=== PATIENT | female | born 2000 | race Two or more races ===

== ENCOUNTER 2020-10-17 12:42 | Outpatient (REF) | payer OTHER, SELFPAY | END 2020-10-17 12:43 | disposition home or self-care (01) | LOC: HO.LAB 12:42 | PROVIDERS: Visit Provider Internal Medicine | DX: Z20.828 Contact with and (suspected) exposure to other viral communicable diseases (principal) | CPT/HCPCS: C9803; U0003 ==

== ENCOUNTER 2020-12-05 17:57 | Emergency (ER) | payer OTHER, SELFPAY | END 2020-12-05 21:48 | disposition left against medical advice (07) | PROVIDERS: Emergency Provider Internal Medicine | DX: L23.9 Allergic contact dermatitis, unspecified cause (principal) | CPT/HCPCS: 99281 ==

== ENCOUNTER 2020-12-06 11:31 | Outpatient (REF) | payer OTHER, SELFPAY ==
[2020-12-06 13:51] LABS: Hematocrit 36.3 % (37-47); Hemoglobin 11.8 g/dl (12.0-16.0); Mean Corpuscular HGB Conc 32.5 g/dl (31.0-35.0); Mean Corpuscular Hemoglobin 27.8 pg (27.0-33.0); Mean Corpuscular Volume 85.4 fL (80-98); Mean Platelet Volume 9.9 fL (9.4-12.3); Platelet Count 315 X10*3/uL (160-400); Red Blood Count 4.25 X10*6/uL (4.20-5.50); Red Cell Distribution Width 12.8 % (11.0-16.0); White Blood Count 8.4 X10*3/uL (4.8-10.8)
== END 2020-12-06 11:32 | disposition home or self-care (01) ==
LOC: HO.WFDLDS 11:31
PROVIDERS: Visit Provider Hospitalist
DX: R10.9 Unspecified abdominal pain (principal); R35.0 Frequency of micturition
CPT/HCPCS: 36415; 85027

== ENCOUNTER 2021-08-06 08:54 | Outpatient (REF) | payer OTHER, SELFPAY ==
[2021-08-06 16:50] LABS: CT PCR NOT DETECTED (Not Detect.); NG PCR NOT DETECTED (Not Detect.)
[2021-08-07 09:13] LABS: BV Int Neg Control Negative (Negative); BV Int Pos Control Positive (Positive)
== END 2021-08-06 08:55 | disposition home or self-care (01) ==
LOC: HO.LAB 08:54
PROVIDERS: PCP Hospitalist; Visit Provider Advanced Practice Midwife
DX: Z01.411 Encounter for gynecological examination (general) (routine) with abnormal findings (principal); Z11.3 Encounter for screening for infections with a predominantly sexual mode of transmission; R10.2 Pelvic and perineal pain; R30.0 Dysuria
CPT/HCPCS: 87086; 87480; 87491; 87510; 87591; 87660; 88142

== ENCOUNTER 2021-09-20 08:41 | Outpatient (REF) | payer OTHER, SELFPAY | END 2021-09-20 08:42 | disposition home or self-care (01) | LOC: HO.LAB 08:41 | PROVIDERS: Visit Provider Hospitalist | DX: R30.0 Dysuria (principal) | CPT/HCPCS: 87086 ==

== ENCOUNTER 2021-09-20 09:01 | Outpatient (REF) | payer OTHER, SELFPAY ==
[2021-09-20 11:03] LABS: Hematocrit 40.9 % (37-47); Hemoglobin 13.4 g/dl (12.0-16.0); Mean Corpuscular HGB Conc 32.8 g/dl (31.0-35.0); Mean Corpuscular Hemoglobin 28.6 pg (27.0-33.0); Mean Corpuscular Volume 87.4 fL (80-98); Mean Platelet Volume 9.7 fL (9.4-12.3); Platelet Count 282 X10*3/uL (160-400); Red Blood Count 4.68 X10*6/uL (4.20-5.50); Red Cell Distribution Width 12.8 % (11.0-16.0); White Blood Count 7.9 X10*3/uL (4.8-10.8)
[2021-09-20 12:01] LABS: Anion Gap 12 (12-20); Blood Urea Nitrogen 9 mg/dL (9-16); Calcium 9.7 mg/dL (8.4-10.2); Carbon Dioxide 26 mmol/L (22-29); Chloride 104 mmol/L (96-108); Cholesterol 161 mg/dL; Estimated Glomerular Filt Rate > 60; Glucose Fasting 93 mg/dL (60-99); HDL Cholesterol 59 mg/dL; LDL Cholesterol Calculated 87 mg/dl; Sodium 138 mmol/L (135-145); Triglycerides 77 mg/dL
[2021-09-20 12:03] LABS: TSH reflex Free T4 1.24 uIU/mL (0.32-4.0)
== END 2021-09-20 09:02 | disposition home or self-care (01) ==
LOC: HO.WFDLDS 09:01
PROVIDERS: Visit Provider Hospitalist
DX: Z00.01 Encounter for general adult medical examination with abnormal findings (principal); Z86.2 Personal history of diseases of the blood and blood-forming organs and certain disorders involving the immune mechanism
CPT/HCPCS: 36415; 80048; 80061; 84443; 85027

== ENCOUNTER 2022-09-23 09:57 | Outpatient (REF) | payer OTHER, SELFPAY ==
[2022-09-23 11:53] LABS: Hematocrit 37.8 % (37.0-47.0); Hemoglobin 12.6 g/dl (12.0-16.0); Mean Corpuscular HGB Conc 33.3 g/dl (31.0-35.0); Mean Corpuscular Hemoglobin 28.3 pg (27.0-33.0); Mean Corpuscular Volume 84.8 fL (80.0-98.0); Mean Platelet Volume 9.9 fL (9.4-12.3); Platelet Count 294 X10*3/uL (160-400); Red Blood Count 4.46 X10*6/uL (4.20-5.50); Red Cell Distribution Width 11.9 % (11.0-16.0); White Blood Count 6.8 X10*3/uL (4.8-10.8)
[2022-09-23 12:09] LABS: Alanine Aminotransferase 14 U/L (0-31); Albumin Level 4.6 g/dL (3.5-5.0); Alkaline Phosphatase 65 U/L (39-117); Anion Gap 12 (12-20); Aspartate Amino Transferase 17 U/L (5-31); Bilirubin Total 0.5 mg/dL (0.0-1.0); Blood Urea Nitrogen 11 mg/dL (9-16); Calcium 9.7 mg/dL (8.4-10.2); Carbon Dioxide 27 mmol/L (22-29); Chloride 104 mmol/L (96-108); Cholesterol 173 mg/dL; Estimated Glomerular Filt Rate > 60; Glucose Fasting 88 mg/dL (60-99); HDL Cholesterol 57 mg/dL; LDL Cholesterol Calculated 104 mg/dl; Potassium 4.3 mmol/L (3.3-5.1); Sodium 139 mmol/L (135-145); Triglycerides 63 mg/dL
[2022-09-23 12:30] LABS: TSH reflex Free T4 0.94 uIU/mL (0.32-4.0)
[2022-09-26 16:01] LABS: Vitamin D 25-OH, D2 <4 ng/mL; Vitamin D 25-OH, D3 14 ng/mL; Vitamin D 25-OH, Total 14 ng/mL (30-100)
== END 2022-09-23 09:58 | disposition home or self-care (01) ==
LOC: HO.WFDLDS 09:57
PROVIDERS: Visit Provider Hospitalist
DX: Z00.00 Encounter for general adult medical examination without abnormal findings (principal); L40.3 Pustulosis palmaris et plantaris
CPT/HCPCS: 36415; 80053; 80061; 82306; 84443; 85027

== ENCOUNTER 2023-03-17 10:03 | Outpatient (REF) | payer OTHER, SELFPAY | END 2023-03-17 10:04 | disposition home or self-care (01) | LOC: HO.LNP 10:03 | PROVIDERS: PCP Hospitalist; Visit Provider Advanced Practice Midwife | DX: R39.15 Urgency of urination (principal) | CPT/HCPCS: 81003 ==

== ENCOUNTER 2023-03-17 10:44 | Outpatient (REF) | payer OTHER, SELFPAY ==
[2023-03-17 12:52] LABS: Syphilis Screen Nonreactive (Nonreactive)
[2023-03-17 12:54] LABS: HBc Num1 0.06 S/CO (0.00-0.79); HIV Num 1 1.41 S/CO (0.00-0.99); Hepatitis B Core Antibody Nonreactive (Nonreactive); ~HepC Num1 0.08 S/CO (0.00-0.79); ~Hepatitis C Antibody Nonreactive (Nonreactive)
[2023-03-17 14:30] LABS: CT PCR NOT DETECTED (Not Detect.); NG PCR NOT DETECTED (Not Detect.)
[2023-03-17 14:41] LABS: HIV AB/AG Nonreactive (Nonreactive); HIV Num 2 0.07 S/CO; HIV Num 3 0.07 S/CO
== END 2023-03-17 10:45 | disposition home or self-care (01) ==
LOC: HO.LAB 10:44
PROVIDERS: Visit Provider Advanced Practice Midwife
DX: Z11.4 Encounter for screening for human immunodeficiency virus [HIV] (principal); Z20.2 Contact with and (suspected) exposure to infections with a predominantly sexual mode of transmission
CPT/HCPCS: 0353U; 86704; 86780; 86803; 87389

== ENCOUNTER 2023-04-18 10:51 | Outpatient (REF) | payer OTHER, SELFPAY ==
[2023-04-18 12:22] LABS: Alanine Aminotransferase 13 U/L (0-31); Albumin Level 4.2 g/dL (3.5-5.0); Alkaline Phosphatase 63 U/L (39-117); Aspartate Amino Transferase 16 U/L (5-31); Bilirubin Direct 0.1 mg/dL (0.0-0.5); Bilirubin Total 0.4 mg/dL (0.0-1.0); Total Protein 6.6 g/dL (6.5-8.0)
== END 2023-04-18 10:52 | disposition home or self-care (01) ==
LOC: HO.LAB 10:51
PROVIDERS: PCP Hospitalist; Visit Provider Physician Assistant Medical
DX: B35.1 Tinea unguium (principal); B35.3 Tinea pedis; D23.61 Other benign neoplasm of skin of right upper limb, including shoulder
CPT/HCPCS: 36415; 80076

== ENCOUNTER 2023-09-22 11:13 | Outpatient (AMB) | payer OTHER, SELFPAY ==
[2023-09-22 11:26] VITALS: BP 112/78; PULSE 73; O2SAT 98; BMI 26.9
--- NOTE | 2023-09-22 11:26 | MHC.PC.OV ---
Vital Signs 09/22/23 11:26 Height 5 ft 4 in Weight 71.214 kg BMI 26.9 BP 112/78 Blood Pressure Location Lt brachial Position Sitting Pulse 73 Pulse Source Pulse Oximeter Pulse Oximetry (%) 98 Oxygen Delivery Method Room Air Intake Visit Reasons: est care Intake Note: Patient here to establish care Supply Chain Associate Required: No Accompanied by: Self / Same As Patient Allergies peach [PEACH] Allergy (Mild, Verified 09/22/23 11:38) HIVES berries Allergy (Severe, Uncoded 09/23/22 09:24) hives Nectarines Allergy (Unknown, Uncoded 09/23/22 09:24) Throat closes Peaches Allergy (Unknown, Uncoded 09/23/22 09:24) Throat closes Medication List - Last Reconciled 09/22/23 by JAX Delgado No Known Home Meds Tobacco use date assessed: 09/22/23 Dental Screening Dental Screen Date: 09/22/23 Did you have a dental visit in the last 12 months?: No Did you have a dental problem in the last 6 months where you did not have access to dental care?: No Was dental information given to patient?: Patient has dentist HPI HPI Comments History of Present Illness Details 23-year-old female past medical history significant for iron deficiency anemia, vitamin-D deficiency. Previous patient of Apryl Acharya last seen last year. Patient presents today for physical exam. Patient reports has upcoming appointment with OBGYN next month. Eye exam recommended. Patient reports overall feeling however she is complaining of ongoing chronic neck pain and upper back pain related to her large breast. Patient reports she wears size G bras. Patient reports she has strap grooving from her bras, denies rashes. Patient recommended to try conservative treatment with [id number]-[id number] ibuprofen or Tylenol for pain and will refer to physical therapy for neck pain. PFSH Surgical History Hx of wisdom tooth extraction Family History Father Hypertension Social History Housing: House Alcohol intake: current Alcohol intake frequency: holidays/special occasions only Alcohol type: other Patient Tobacco Use Status: Never used Tobacco e-Cigarette/Vaping Use: Never Used Second Hand Smoke Exposure: No service: No Current occupational status: employed Current occupational exposures/hazards: No Sexual orientation: Bisexual Gender identity: Female Cognitive needs: No Hearing needs: No Vision needs: No Female Reproductive History Menstrual Age of Menarche: 11 Questionnaire PHQ-9 Over the last 2 weeks, how often have you been bothered by any of the following problems? 1. Little interest or pleasure in doing things: not at all 2. Feeling down, depressed, or hopeless: not at all 3. Trouble falling or staying asleep, or sleeping too much: not at all 4. Feeling tired or having little energy: not at all 5. Poor appetite or overeating: not at all 6. Feeling bad about yourself - or that you are a failure or have let yourself or your family down: not at all 7. Trouble concentrating on things, such as reading the newspaper or watching television: not at all 8. Moving or speaking so slowly that other people could have noticed. Or the opposite - being so fidgety or restless that you have been moving around a lot more than usual: not at all 9. Thoughts that you would be better off or of hurting yourself in some way: not at all Total score: 0 Depression Screening Interpretation: Negative Depression Screening Done: Yes 69968 - PHQ-9 Billing: Yes Source: Developed by Drs. Landry Desai, Yoli Caceres, Killian Alfaro and colleagues, with an educational shayy from Currently. Thrive Questionnaire Date Thrive assessed: 09/22/23 I am a: Patient What is your living situation today?: I have a steady place to live Within the past 12 months, did the food you bought not last and you didn't have the money to get more?: Never true Within the past 12 months, did you worry whether your food would run out before you got money to buy more?: Never true Do you have trouble paying for medicines?: No Do you have trouble getting transportation to medical appointments?: No Do you have trouble paying your heating and electricity bill?: No Do you have trouble taking care of your child, family member or friend?: No Do you have trouble with day-to-day activities such as bathing, preparing meals, shopping, managing finances, etc.?: No Are you currently unemployed and looking for a job?: No Are you interested in more education?: No Please select the resources that you would like help with: None Currently or been in a relationship where the following occur: no concerns reported AUDIT C Alcohol Use Questionnaire (AUDIT-C) 1. How often do you have a drink containing alcohol?: Monthly or less 2. How many drinks containing alcohol do you have on a typical day when you are drinking?: 1 or 2 3. How often do you have six or more drinks on one occasion?: Never Total Score: 1 RUFINA-7 AMB Questionnaire RUFINA-7 Date RUFINA - 7 assessed: 09/22/23 Feeling nervous, anxious, or on edge: 1 = Several days Not being able to stop or control worryin = Not at all Worrying too much about different things: 0 = Not at all Trouble relaxin = Not at all Being so restless that it is hard to sit still: 0 = Not at all Becoming easily annoyed or irritable: 0 = Not at all Feeling afraid as if something awful might happen: 0 = Not at all Total RUFINA-7 score (0-4 normal; 5-9 mild; 10-14 moderate; 15-21 severe): 1 Source: Developed by Drs. Landry Desai, Yoli Caceres, Killian Alfaro and colleagues, with an educational shayy from Currently. RUFINA-7 Assessment Billing RUFINA-7 Assessment Tool: RUFINA-7 Assessment 32541 Physical exam (Primary Care) Vital Signs: Last Vital Signs Pulse 73 09/22/23 11:26 BP 112/78 09/22/23 11:26 Pulse Ox 98 09/22/23 11:26 Oxygen Delivery Method Room Air 09/22/23 11:26 BMI result Body Mass Index 26.9 Tobacco/Smoking Status: Tobacco use Status Tobacco use date assessed 09/22/23 09/22/23 11:31 Patient Tobacco Use Status Never used Tobacco 09/22/23 11:31 e-Cigarette/Vaping Use Never Used 09/22/23 11:31 PHQ-9: PHQ-9 Score PHQ-9: Total score 0 09/22/23 12:01 Depression Screening Interpretation: Negative Thrive Assessment: Date of Thrive Assessment Date Thrive assessed 09/22/23 09/22/23 11:31 Currently or been in a relationship where the following occur: no concerns reported Office Procedures Flu Questionnaire Does the patient have a severe egg allergy?: No Immunizations flu vacc [id number] 6mos up(PF) 60 mcg(15 mcgx4)/0.5 mL IM syringe Performing Provider: JAX Delgado [facility] Documented (not given) by: TANI Michelle on 09/22/23 12:05 Reason Not Given: Patient Refused Assessment and Plan Assessment & Plan (1) Vitamin D deficiency: Code(s): E55.9 - Vitamin D deficiency, unspecified Plan: Vitamin-D level ordered (2) Hx of iron deficiency anemia: Code(s): Z86.2 - Personal history of diseases of the blood and blood-forming organs and certain disorders involving the immune mechanism Plan: CBC ordered. (3) Large breasts: Code(s): N62 - Hypertrophy of breast Plan: Patient thinking about breast reduction surgery due to ongoing chronic neck pain and upper back pain related to large breast size. Patient advised to wear wide strep bras, use [id number] NSAIDs as needed for pain refer to physical therapy. Follow-up in 3 months. (4) Physical exam, annual: Code(s): Z00.00 - Encounter for general adult medical examination without abnormal findings Plan: Follow-up in 1 year. Plan Follow-up in 3 months Orders: Orders Complete Blood Count Auto Diff Today Z13.0 - Encounter for screening for diseases of the blood and blood-forming organs and certain disorders involving the immune mechanism TSH reflex Free T4 Today Z13.29 - Encounter for screening for other suspected endocrine disorder Comprehensive Met. Panel Today Z13.1 - Encounter for screening for diabetes mellitus Vitamin D 25-OH Total Today Z13.21 - Encounter for screening for nutritional disorder PT Evaluation and Treatment Today M54.2 - Cervicalgia Influenza [id number] Immunization Today Z23 - Encounter for immunization Coding Level of Care Code Est Pt Prev Care 18-39y([id number]) Diagnoses Vitamin D deficiency E55.9 Hx of iron deficiency anemia Z86.2 Large breasts N62 Physical exam, annual Z00.00 Additional Codes RUFINA-7 Assessment Billing - RUFINA-7 Assessment Tool: RUFINA-7 Assessment [id number] ([id number])
== END 2023-09-22 11:56 | disposition home or self-care (01) ==
PROVIDERS: PCP Hospitalist; Visit Provider Nurse Practitioner Family
DX: Z00.00 Encounter for general adult medical examination without abnormal findings (principal); E55.9 Vitamin D deficiency, unspecified; Z86.2 Personal history of diseases of the blood and blood-forming organs and certain disorders involving the immune mechanism; N62 Hypertrophy of breast
CPT/HCPCS: 99395

== ENCOUNTER 2023-11-28 11:24 | Outpatient (REF) | payer OTHER, SELFPAY | END 2023-11-28 11:25 | disposition home or self-care (01) | LOC: HO.LNP 11:24 | PROVIDERS: PCP Hospitalist; Visit Provider Advanced Practice Midwife | DX: R10.2 Pelvic and perineal pain (principal); R30.0 Dysuria; K59.00 Constipation, unspecified | CPT/HCPCS: 0353U; 87086; 87480; 87510; 87660 ==

== ENCOUNTER 2023-11-28 11:24 | Outpatient (AMB) | payer OTHER, SELFPAY ==
[2023-11-28 11:42] VITALS: BP 100/60; BMI 26.6
--- NOTE | 2023-11-28 11:42 | MHC.OFFVIS ---
Intake Vital Signs 11/28/23 11:42 Height 5 ft 4 in Weight 155 lb BMI 26.6 BP 100/60 Position Sitting Intake Visit Reasons: pelvic pain Intake Note: Pt is here for c/o pelvic pain, vaginal discharge with slight odor, frequency, and urgency. Has had symptoms for several weeks. LMP 11/11/23 x3 days. Menses are usually regular Front Desk Required: No Allergies peach [PEACH] Allergy (Mild, Verified 09/22/23 11:38) HIVES berries Allergy (Severe, Uncoded 09/23/22 09:24) hives Nectarines Allergy (Unknown, Uncoded 09/23/22 09:24) Throat closes Peaches Allergy (Unknown, Uncoded 09/23/22 09:24) Throat closes Medication List - Last Reconciled 11/28/23 by Gemma Smith No Known Home Meds Is last menstrual period known: Yes Last menstrual period: 11/11/23 Post menopausal: No Patient : No HPI pelvic pain HPI Details Pt is here for c/o pelvic pain, vaginal discharge with slight odor, frequency, and urgency. Has had symptoms for 30. LMP 11/11/23 x3 days. Admits to long history of constipation, feels pretty backed up at this point. She has a limited caffeine sodas carbonated beverages artificial sweeteners from her diet. [facility] Hx of wisdom tooth extraction Family History Father Hypertension Social History Housing: House Alcohol intake: current Alcohol intake frequency: holidays/special occasions only Alcohol type: other Patient Tobacco Use Status: Never used Tobacco e-Cigarette/Vaping Use: Never Used Second Hand Smoke Exposure: No service: No Current occupational status: employed Current occupational exposures/hazards: No Sexual orientation: Bisexual Gender identity: Female Cognitive needs: No Hearing needs: No Vision needs: No Female Reproductive History Menstrual Age of Menarche: 11 Duration of menses: 3-5 days Date of last menstrual period: 11/11/23 control method: none Total pregnancies: 0 History of abnormal pap smear: No History of STI: No Review of Systems Const All systems reviewed & are unremarkable except as noted in HPI and below Physical Exam Vital Signs: Last Vital Signs BP 100/60 11/28/23 11:42 BMI result Body Mass Index 26.6 Const General: cooperative, healthy appearing and no acute distress Orientation/consciousness: patient oriented x3 GI Inspection: Yes normal to inspection Palpation (GI): Soft to palpation and Other GI palpation findings present (Nontender) Rectal Exam - Female: visual inspection normal General: Yes bladder normal to palpation External Female Exam: normal appearance of the urethra Speculum Exam - Vagina: normal appearance of the vagina, normal palpation and normal vaginal discharge Speculum Exam - Cervix: normal appearance of the cervix and normal palpation Bimanual exam- vagina & uterus: normal bimanual exam, normal palpation, uterine size normal, bladder normal to palpation, normal palpation, uterine shape normal and non-tender Bimanual Exam- Adnexa, other: normal adnexae (Left, right side full consistent with constipated stool) Neuro General: patient oriented x3 Results AMB Test Urine AMB Test Urine Negative Last Edit by Gemma Smith on 11/28/23 12:00 Assessment & Plan Assessment & Plan (1) Pelvic pain: Code(s): R10.2 - Pelvic and perineal pain (2) Constipated: Code(s): K59.00 - Constipation, unspecified Qualifiers: Constipation type: unspecified constipation type Qualified Code(s): K59.00 - Constipation, unspecified Plan Plan pelvic ultrasound and a follow-up office visit a week after for plan of of care review progress Reviewed self-help measures in jkug-cnr-qokjryb products to help regulate in stimulate if needed. Strongly encouraged she continue just drinking lots of water and exercise. If urine culture is negative, patient advised to consider urology referral due to her symptoms. All of her questions and concerns were addressed to the best of my ability and shared decision making. She is agreeable to the plan of care. Orders: Orders Bacterial Vaginosis Panel Today R10.2 - Pelvic and perineal pain US pelvic and transvaginal Today K59.00 - Constipation, unspecified, R10.2 - Pelvic and perineal pain CT NG by PCR Today R10.2 - Pelvic and perineal pain Urine Culture Today R30.0 - Dysuria Coding Level of Care Code Est Pt Level 4 (26716) Diagnoses Pelvic pain R10.2 Constipation, unspecified constipation type K59.00 Constipation type: unspecified constipation type
== END 2023-11-28 12:26 | disposition home or self-care (01) ==
LOC: HO.HWS 11:24
PROVIDERS: PCP Hospitalist; Visit Provider Advanced Practice Midwife
DX: R10.2 Pelvic and perineal pain (principal); K59.00 Constipation, unspecified
CPT/HCPCS: 99214

== ENCOUNTER 2024-01-05 10:53 | Outpatient (REF) | payer OTHER, SELFPAY ==
--- NOTE | ~2024-01-05 | US_ITS ---
EXAMINATION: US PELVIS CLINICAL INFORMATION: Pelvic and perineal pain. LMP 12/31/2023. COMPARISON: 02/17/2019 TECHNIQUE: Ultrasound of the pelvis is performed using both transabdominal and transvaginal transducers along with Doppler. Transvaginal imaging is performed due to inadequate visualization transabdominally. FINDINGS: Uterus: The uterus is anteverted and measures 8.0 x 3.6 x 5.1 cm. Uterine echotexture is heterogeneous. The double wall endometrial thickness is 5 mm. The uterus is smooth in contour. No visible fibroid. Adnexa: Both ovaries are visualized. Right ovary measures 3.3 x 1.9 x 2.6 cm. Left ovary measures 3.5 2.6 x 2.4 cm. No free fluid in pelvis. US/US pelvic and transvaginal IMPRESSION: Unremarkable pelvic ultrasound.
== END 2024-01-05 10:54 | disposition home or self-care (01) ==
LOC: HO.US 10:53
PROVIDERS: Visit Provider Advanced Practice Midwife
DX: R10.2 Pelvic and perineal pain (principal); K59.00 Constipation, unspecified
CPT/HCPCS: 76830; 76856

== ENCOUNTER 2024-01-20 15:07 | Outpatient (AMB) | payer OTHER, SELFPAY ==
--- NOTE | 2024-01-20 15:12 | MHC.OFFVIS ---
Intake Vital Signs 01/20/24 15:13 Height 5 ft 4 in Weight 155 lb BMI 26.6 BP 114/65 Intake Visit Reasons: Ultra sound follow up Golf Player Assistant Required: No Information Interpreted: non-clinical & clinical Foundry Worker: Foundry Worker Present Accompanied by: Self / Same As Patient Allergies peach [PEACH] Allergy (Mild, Verified 01/20/24 15:16) HIVES berries Allergy (Severe, Uncoded 01/20/24 15:16) hives Nectarines Allergy (Unknown, Uncoded 01/20/24 15:16) Throat closes Peaches Allergy (Unknown, Uncoded 01/20/24 15:16) Throat closes Is last menstrual period known: Yes Last menstrual period: 12/29/23 Post menopausal: No Patient : No HPI HPI Comments History of Present Illness Details Patient is here today with a follow-up ultrasound, history of fullness in the pelvic exam last visit. She had a history of significant constipation and at that time was pretty full. She reports feeling better has improved her fluid intake and increased her fiber. She declines a pelvic exam today. PFSH Surgical History Hx of wisdom tooth extraction Family History Father Hypertension Social History Housing: House Alcohol intake: current Alcohol intake frequency: holidays/special occasions only Alcohol type: other Patient Tobacco Use Status: Never used Tobacco e-Cigarette/Vaping Use: Never Used Second Hand Smoke Exposure: No Patient : No service: No Current occupational status: employed Current occupational exposures/hazards: No Sexual orientation: Bisexual Gender identity: Female Cognitive needs: No Hearing needs: No Vision needs: No Female Reproductive History Menstrual Age of Menarche: 11 Date of last menstrual period: 12/29/23 Review of Systems Const All systems reviewed & are unremarkable except as noted in HPI and below Endo Reports no additional complaints Physical Exam Vital Signs: Last Vital Signs BP 114/65 01/20/24 15:13 BMI result Body Mass Index 26.6 Const General: cooperative, healthy appearing and no acute distress Psych Appearance: well kempt Attitude: cooperative Thought process: Normal thought process present Results Reviewed Results Reviewed: [facility] [address] [place] [address] Ultrasound Report Signed Patient: Sarahi Dash MR#: [id number] : 2000 Acct:[id number] Age/Sex: 23 / F ADM Date: 01/05/24 Loc: HO.US Attending Dr: Aisha Wade CNM Ordering Physician: Aisha Wade CNM Date of Service: 01/05/24 Procedure(s): US pelvic and transvaginal Accession Number(s): [id number] cc: Aisha Wade CNM~ EXAMINATION: US PELVIS CLINICAL INFORMATION: Pelvic and perineal pain. LMP 12/31/2023. COMPARISON: 02/17/2019 TECHNIQUE: Ultrasound of the pelvis is performed using both transabdominal and transvaginal transducers along with Doppler. Transvaginal imaging is performed due to inadequate visualization transabdominally. FINDINGS: Uterus: The uterus is anteverted and measures 8.0 x 3.6 x 5.1 cm. Uterine echotexture is heterogeneous. The double wall endometrial thickness is 5 mm. The uterus is smooth in contour. No visible fibroid. Adnexa: Both ovaries are visualized. Right ovary measures 3.3 x 1.9 x 2.6 cm. Left ovary measures 3.5 2.6 x 2.4 cm. No free fluid in pelvis. US/US pelvic and transvaginal IMPRESSION: Unremarkable pelvic ultrasound. Dictated By: Laron Jackson MD Signed By: <Electronically signed by Laron Jackson MD in OV> 01/05/24 1332 DD/ 1104 TD/TT: Wheel Grinder: Assessment & Plan Assessment & Plan (1) Encounter to discuss test results: Code(s): Z71.2 - Person consulting for explanation of examination or test findings Plan Discussed: Ultrasound results were unremarkable. She is going to continue to monitor her diet increasing w/fluids and fiber. Annual scheduled in February. All of her questions and concerns were addressed to the best of my ability and shared decision making. She is agreeable to the plan of care. This note is constructed using voice recognition software. While every effort has been made to ensure accuracy, regional geodetic advisor errors may have been included. Coding Level of Care Code Est Pt Level 3 (16644) Diagnoses Encounter to discuss test results Z71.2
[2024-01-20 15:13] VITALS: BP 114/65; BMI 26.6
== END 2024-01-20 16:21 | disposition home or self-care (01) ==
LOC: HO.HWS 15:07
PROVIDERS: Visit Provider Advanced Practice Midwife
DX: Z71.2 Person consulting for explanation of examination or test findings (principal)
CPT/HCPCS: 99213

== ENCOUNTER → 2024-01-20 15:07 | Outpatient (BNVA) | payer OTHER, SELFPAY | PROVIDERS: Visit Provider Advanced Practice Midwife ==

== ENCOUNTER 2024-01-22 11:06 | Outpatient (AMB) | payer OTHER, SELFPAY ==
[2024-01-22 11:14] VITALS: BP 110/70; PULSE 70; O2SAT 99; BMI 25.1
--- NOTE | 2024-01-22 11:14 | MHC.PC.OV ---
Vital Signs 01/22/24 11:14 Height 5 ft 4 in Weight 146 lb 6 oz BMI 25.1 BP 110/70 Blood Pressure Location Lt brachial Position Sitting Pulse 70 Pulse Source Pulse Oximeter Pulse Oximetry (%) 99 Oxygen Delivery Method Room Air Intake Visit Reasons: transfer from [place]/referral Intake Note: The patient is present for the transfer of care from [facility] due to gastrointestinal issues and is requesting a referral. The ongoing concern involves constipation, with stools exhibiting a yellowish color and mucus bile. The patient has been experiencing abdominal discomfort for the past year. 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 Accompanied by: Self / Same As Patient Allergies acetaminophen [From Percocet] Allergy (Severe, Verified 01/22/24 11:37) Vomiting oxycodone [From Percocet] Allergy (Severe, Verified 01/22/24 11:37) Vomiting peach [PEACH] Allergy (Mild, Verified 01/22/24 11:37) HIVES berries Allergy (Severe, Uncoded 01/22/24 11:19) hives Nectarines Allergy (Unknown, Uncoded 01/22/24 11:19) Throat closes Peaches Allergy (Unknown, Uncoded 01/22/24 11:19) Throat closes Medication List - Last Reconciled 01/22/24 by Ovidio Mayfield PA-C No Known Home Meds Tobacco use date assessed: 01/22/24 Dental Screening Dental Screen Date: 01/22/24 Did you have a dental visit in the last 12 months?: Yes Did you have a dental problem in the last 6 months where you did not have access to dental care?: No Was dental information given to patient?: Patient has dentist HPI transfer from [place]/referral HPI Details Patient is a 23-year-old female here today for transfer care visit. Patient has no significant past medical. She complains about lower GI discomfort over the last year, does report some yellowish mucus in her stool from time to time. Has changed her diet and drinking more water though has not been able to figure out a food trigger of her GI issues. Otherwise denies any diarrhea, vomiting, happened weight loss, fevers. [facility] Surgical History Hx of wisdom tooth extraction Family History Father Hypertension Social History Housing: House Alcohol intake: current Alcohol intake frequency: holidays/special occasions only Alcohol type: other Patient Tobacco Use Status: Never used Tobacco e-Cigarette/Vaping Use: Never Used Second Hand Smoke Exposure: No service: No Current occupational status: employed Current occupational exposures/hazards: No Sexual orientation: Bisexual Gender identity: Female Cognitive needs: No Hearing needs: No Vision needs: No Female Reproductive History Menstrual Age of Menarche: 11 Questionnaire PHQ-9 Over the last 2 weeks, how often have you been bothered by any of the following problems? 1. Little interest or pleasure in doing things: not at all 2. Feeling down, depressed, or hopeless: not at all 3. Trouble falling or staying asleep, or sleeping too much: not at all 4. Feeling tired or having little energy: not at all 5. Poor appetite or overeating: not at all 6. Feeling bad about yourself - or that you are a failure or have let yourself or your family down: not at all 7. Trouble concentrating on things, such as reading the newspaper or watching television: not at all 8. Moving or speaking so slowly that other people could have noticed. Or the opposite - being so fidgety or restless that you have been moving around a lot more than usual: not at all 9. Thoughts that you would be better off or of hurting yourself in some way: not at all Total score: 0 Depression Screening Interpretation: Negative Depression Screening Done: Yes 36020 - PHQ-9 Billing: Yes Source: Developed by Drs. Landry Desai, Yoli Caceres, Killian Alfaro and colleagues, with an educational shayy from [employer]. Thrive Questionnaire Date Thrive assessed: 01/22/24 I am a: Patient What is your living situation today?: I have a steady place to live Within the past 12 months, did the food you bought not last and you didn't have the money to get more?: Never true Within the past 12 months, did you worry whether your food would run out before you got money to buy more?: Never true Do you have trouble paying for medicines?: No Do you have trouble getting transportation to medical appointments?: No Do you have trouble paying your heating and electricity bill?: No Do you have trouble taking care of your child, family member or friend?: No Do you have trouble with day-to-day activities such as bathing, preparing meals, shopping, managing finances, etc.?: No Are you currently unemployed and looking for a job?: No Are you interested in more education?: No Please select the resources that you would like help with: None Currently or been in a relationship where the following occur: no concerns reported THRIVE Score: 0 AUDIT C Alcohol Use Questionnaire (AUDIT-C) 1. How often do you have a drink containing alcohol?: Monthly or less 2. How many drinks containing alcohol do you have on a typical day when you are drinking?: 1 or 2 3. How often do you have six or more drinks on one occasion?: Never Total Score: 1 RUFINA-7 AMB Questionnaire RUFINA-7 Date RUFINA - 7 assessed: 01/22/24 Feeling nervous, anxious, or on edge: 0 = Not at all Not being able to stop or control worryin = Not at all Worrying too much about different things: 0 = Not at all Trouble relaxin = Not at all Being so restless that it is hard to sit still: 0 = Not at all Becoming easily annoyed or irritable: 0 = Not at all Feeling afraid as if something awful might happen: 0 = Not at all Total RUFINA-7 score (0-4 normal; 5-9 mild; 10-14 moderate; 15-21 severe): 0 Source: Developed by Drs. Landry Desai, Yoli Caceres, Killian Alfaro and colleagues, with an educational shayy from [employer]. RUFINA-7 Assessment Billing RUFINA-7 Assessment Tool: RUFINA-7 Assessment 46115 Review of Systems Const Denies headache(s) Eyes Denies loss of vision ENT Denies vertigo, Denies dizziness, Denies headache(s) and Denies sore throat Card Denies chest pain, Denies leg edema and Denies lightheadedness Resp Denies cough, Denies hemoptysis and Denies wheezing GI Reports abdominal pain, Denies melena, Reports constipation, Denies diarrhea and Denies vomiting Denies urinary frequency, Denies dysuria and Denies urinary urgency Musc Denies arthralgias, Denies joint swelling, Denies numbness and Denies tingling Neuro Denies Abnormal speech present, Denies behavioral changes, Denies vertigo, Denies dizziness, Denies headache(s), Denies loss of vision, Denies memory loss, Denies numbness and Denies tingling Psych Denies anxiety, Denies behavioral changes, Denies depression, Denies memory loss and Denies panic attacks Josué/Lymph Denies easy bleeding and Denies easy bruising Aller/Immun Denies wheezing Physical exam (Primary Care) Vital Signs: Last Vital Signs Pulse 70 01/22/24 11:14 BP 110/70 01/22/24 11:14 Pulse Ox 99 01/22/24 11:14 Oxygen Delivery Method Room Air 01/22/24 11:14 BMI result Body Mass Index 25.1 Tobacco/Smoking Status: Tobacco use Status Tobacco use date assessed 01/22/24 01/22/24 11:23 Patient Tobacco Use Status Never used Tobacco 01/22/24 11:15 e-Cigarette/Vaping Use Never Used 01/22/24 11:15 PHQ-9: PHQ-9 Score PHQ-9: Total score 0 01/22/24 11:44 Depression Screening Interpretation: Negative Thrive Assessment: Date of Thrive Assessment Date Thrive assessed 01/22/24 01/22/24 11:23 Currently or been in a relationship where the following occur: no concerns reported Const General: healthy appearing, no acute distress, alert and awake Nutritional Appearance: well nourished Orientation/consciousness: oriented to person, oriented to place and oriented to time HENTN Ears: TM's normal bilaterally General nose exam: Normal nasal mucous membranes and turbinates present Eyes Conjunctivae: conjunctivae normal Sclerae: sclerae normal Pupils: Equal, round and reactive pupils present Neck Neck: Yes no lymphadenopathy and Yes no JVD Thyroid: Thyroid normal Carotids: no bruits Resp Effort & Inspection: normal respiratory effort and not tachypneic Auscultation: no crackles, no rales, no rhonchi and no wheezes Cardio Rate: regular rate Rhythm: regular rhythm Heart sounds: no murmurs and normal S1 and S2 GI Palpation (GI): Soft to palpation, nontender, no hepatomegaly and no splenomegaly Auscultation: normal bowel sounds Abdomen image: 1. TENDERNESS TO PALPATION OVER ENTIRE LOWER ABDOMEN Skin General skin exam: no rashes or lesions noted and dry skin Neuro General: oriented to person, oriented to place and oriented to time Cranial nerves: Yes Equal, round and reactive pupils present Speech: No Abnormal speech present Gait exam (Neuro): Normal gait present Motor exam (neuro): no tremor noted Extrem Right upper extremity: full ROM Left upper extremity: full ROM Right lower extremity: full ROM; no edema Left lower extremity: full ROM; no edema Psych Mental Status: mental status grossly normal Speech and movement: Normal speech and movement present Affect: normal affect Attitude: cooperative Thought process: Normal thought process present Assessment and Plan Assessment & Plan (1) Constipation: Code(s): K59.00 - Constipation, unspecified Qualifiers: Constipation type: other constipation type Qualified Code(s): K59.09 - Other constipation Plan: Unclear etiology to patient's constipation. Has made dietary changes and play close attention to what foods she has been eating though has made no difference. ? IBS -C. She has tried amzf-sya-eulpzry stool softeners though is concerned about side effects from these medications. Has not tried stool bulking agent thus will consider trying Metamucil. She is interested in seeing a drug safety coordinator specialist (2) Screening for diabetes mellitus (DM): Code(s): Z13.1 - Encounter for screening for diabetes mellitus Orders: Orders Transglutaminase IgA Today K59.09 - Other constipation, R14.0 - Abdominal distension (gaseous) Vitamin D 25-OH Total Today E55.9 - Vitamin D deficiency, unspecified Comprehensive [place]. Panel Fast Today Z13.1 - Encounter for screening for diabetes mellitus Leukocytes Stool Qualitative Today K59.09 - Other constipation Cyclospora & Isospora Stool Today K59.09 - Other constipation Transglutaminase Ab IgG Today K59.09 - Other constipation, R14.0 - Abdominal distension (gaseous) Referrals Gastroenterology Referral K59.09 - Other constipation Coding Level of Care Code Est Pt Level 4 (50432) Diagnoses Other constipation K59.09 Constipation type: other constipation type Screening for diabetes mellitus (DM) Z13.1 Additional Codes RUFINA-7 Assessment Billing - RUFINA-7 Assessment Tool: RUFINA-7 Assessment 94530 ([id number])
== END 2024-01-22 11:51 | disposition home or self-care (01) ==
PROVIDERS: PCP Hospitalist; Visit Provider Physician Assistant
DX: K59.09 Other constipation (principal); Z13.1 Encounter for screening for diabetes mellitus
CPT/HCPCS: 99214

== ENCOUNTER 2024-01-22 11:54 | Outpatient (REF) | payer OTHER, SELFPAY ==
[2024-01-22 13:04] LABS: Alanine Aminotransferase 10 U/L (0-31); Albumin Level 4.6 g/dL (3.5-5.0); Alkaline Phosphatase 64 U/L (39-117); Anion Gap 12 (12-20); Aspartate Amino Transferase 17 U/L (5-31); Bilirubin Total 0.8 mg/dL (0.0-1.0); Blood Urea Nitrogen 11 mg/dL (9-16); Calcium 9.6 mg/dL (8.4-10.2); Carbon Dioxide 26 mmol/L (22-29); Chloride 105 mmol/L (96-108); Estimated Glomerular Filt Rate > 60; Glucose Fasting 85 mg/dL (60-99); Potassium 3.7 mmol/L (3.3-5.1); Sodium 139 mmol/L (135-145); Total Protein 7.1 g/dL (6.5-8.0)
[2024-01-22 13:19] LABS: Vitamin D 25-OH Total 24.3 ng/mL (>30)
[2024-01-26 13:33] LABS: Transglutaminase Ab IgG <1.0 U/mL; Transglutaminase IgA <1.0 U/mL
== END 2024-01-22 11:55 | disposition home or self-care (01) ==
LOC: HO.LAB 11:54
PROVIDERS: PCP Physician Assistant; Visit Provider Physician Assistant
DX: Z13.1 Encounter for screening for diabetes mellitus (principal); R14.0 Abdominal distension (gaseous); K59.09 Other constipation; E55.9 Vitamin D deficiency, unspecified
CPT/HCPCS: 36415; 80053; 82306; 86364

== ENCOUNTER 2024-03-23 10:34 | Outpatient (REF) | payer OTHER, SELFPAY | END 2024-03-23 10:35 | disposition home or self-care (01) | LOC: HO.LNP 10:34 | PROVIDERS: Visit Provider Advanced Practice Midwife | DX: Z01.419 Encounter for gynecological examination (general) (routine) without abnormal findings (principal) | CPT/HCPCS: 88142 ==

== ENCOUNTER 2024-03-23 10:34 | Outpatient (AMB) | payer OTHER, SELFPAY ==
--- NOTE | 2024-03-23 10:35 | A.OFFVIS_ITS ---
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 Doing well with no concerns. She tries to eat healthy and stays active with exercise. Regular monthly menses. Currently is not sexually active. She denies vaginal itching and irritation. STI screening offered; she declines. Denies family history of breast, ovarian or colon cancer. Last pap smear 2020, negative. PFSH Surgical History Hx of wisdom tooth extraction Family History Father Hypertension Social History Housing: House Alcohol intake: current Alcohol intake frequency: holidays/special occasions only Alcohol type: other Patient Tobacco Use Status: Never used Tobacco e-Cigarette/Vaping Use: Never Used Second Hand Smoke Exposure: No service: No Current occupational status: employed Current occupational exposures/hazards: No Sexual orientation: Bisexual Gender identity: Female Cognitive needs: No Hearing needs: No Vision needs: No Female Reproductive History Menstrual Age of Menarche: 11 Duration of menses: 3-5 days Date of last menstrual period: 03/17/24 control method: none Total pregnancies: 0 Date of last pap smear: 08/06/21 (neg) Review of Systems Const All systems reviewed & are unremarkable except as noted in HPI and below Reports as per HPI Eyes Reports no additional complaints ENT Reports no additional complaints Card Reports no additional complaints Resp Reports no additional complaints GI Reports as per HPI and Reports no additional complaints Reports as per HPI Musc Reports no additional complaints Skin/Breast Reports as per HPI Neuro Reports no additional complaints Psych Reports no additional complaints Endo Reports no additional complaints Josué/Lymph Reports no additional complaints Aller/Immun Reports no additional complaints Physical Exam Vital Signs: Last Vital Signs BP 106/62 03/23/24 10:36 BMI result Body Mass Index 25.2 Const General: cooperative, healthy appearing, no acute distress, well developed and alert Orientation/consciousness: patient oriented x3 HEENT Head: Yes normal to inspection Eyes General: appearance normal, both eyes and all related structures Neck Neck: Yes normal visual inspection Thyroid: Thyroid normal Chest Chest palpation & inspection: normal inspection of the chest and other (no puckering, dimpling, peau de orange, retraction, discharge, masses) Breast/axilla inspection: normal inspection of the breasts Breast/axilla palpation: normal palpation of the breasts Resp Effort & Inspection: normal respiratory effort GI Inspection: Yes normal to inspection Palpation (GI): Soft to palpation Rectal Exam - Female: deferred General: Yes bladder normal to palpation External Female Exam: normal external appearance and normal appearance of the urethra Speculum Exam - Vagina: normal appearance of the vagina, normal palpation and normal vaginal discharge Speculum Exam - Cervix: normal appearance of the cervix, normal palpation and Other cervical findings present (Bled slightly with Pap) Bimanual exam- vagina & uterus: normal bimanual exam, normal palpation, uterine size normal, bladder normal to palpation, normal palpation and non-tender Bimanual Exam- Adnexa, other: no masses Skin General skin exam: no rashes or lesions noted Rashes: no rashes Neuro General: patient oriented x3 Cognition (Neuro): normal cognition Extrem General: Yes normal to inspection Psych Attitude: cooperative Thought process: Normal thought process present Assessment & Plan Assessment & Plan (1) Encounter for well woman exam with routine gynecological exam: Code(s): Z01.419 - Encounter for gynecological examination (general) (routine) without abnormal findings Plan Discussed: Current recommendations for pap smears per ASCCP guidelines. Breast awareness and periodic breast exams. Maintain a healthy lifestyle including a well balanced diet and routine exercise. Use condoms for STI and prevention. Patient verbalizes understanding and agrees to the plan of care. She was given opportunity to ask questions and all questions were answered to the best of my ability. RTO in one year for annual nursing instructor examination. This note is constructed using voice recognition software. While every effort has been made to ensure accuracy, income tax administrator errors may have been included. Coding Level of Care Code Est Pt Prev Care 18-39y(10183) Diagnoses Encounter for well woman exam with routine gynecological exam Z01.419
[2024-03-23 10:36] VITALS: BP 106/62; BMI 25.2
== END 2024-03-23 11:26 | disposition home or self-care (01) ==
PROVIDERS: Visit Provider Advanced Practice Midwife
DX: Z01.419 Encounter for gynecological examination (general) (routine) without abnormal findings (principal)
CPT/HCPCS: 99395

== ENCOUNTER 2024-05-17 14:28 | Outpatient (AMB) | payer OTHER, SELFPAY ==
--- NOTE | 2024-05-17 14:43 | MHC.OFFVIS ---
Vital Signs 05/17/24 14:49 Height 5 ft 4 in Weight 145 lb 1.027 oz BMI 24.9 BP 110/74 Blood Pressure Location Rt brachial Position Sitting Pulse 70 Pulse Source Pulse Oximeter Pulse Oximetry (%) 99 Oxygen Delivery Method Room Air Intake Visit Reasons: Constipation Intake Note: Sarahi presents to the office today for an initial assessment visit. CC: Pt reports onset of constipation. Pt reports that they have had these sx for many years intermittently. Pt reports having mild to moderate abdominal pain which typically accompanies the constipation. Pt also reports having intermittent hemorrhoids. Pt reports having discolored bowel movements intermittently which they have not had for a few weeks now. Pt states that the BM would appear yellow tinted or bile colored. Pt reports occasional nausea but no vomiting. Pt denies any melena. Pt has been adjusting diet as much as possible (within reason) to include more fiber and increase their fluid intake. 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 Patient reports to have been having on and off symptoms of constipation. Patient reports that her symptoms have been going on for very long time. For the most part patient is trying to eat food that is high in fiber and drink fluids in order for her to have a bowel movement. Occasionally patient reports that her stools are yellow and sometimes green - bile like . Patient denies any melena, hematochezia, unintentional weight loss or ribbon like stools. Patient denies any dyspepsia, dysphagia or odynophagia. Patient reports that she did use jmsw-fyi-hhhprpb laxative in the past. Nothing in the last few months. Patient denies any family history of thyroid disorder. Denies any history of bowel disease. Patient does admit occasional cramping in the left lower quadrant and left upper quadrant specially when patient is constipated. PFSH Medical History Anxiety Surgical History Hx of wisdom tooth extraction Family History Father Hypertension Social History Housing: House Alcohol intake: current Alcohol intake frequency: holidays/special occasions only Alcohol type: other Patient Tobacco Use Status: Never used Tobacco e-Cigarette/Vaping Use: Never Used Second Hand Smoke Exposure: No Substance Use Type: Marijuana service: No Current occupational status: employed Current occupational exposures/hazards: No Sexual orientation: Bisexual Gender identity: Female Cognitive needs: No Hearing needs: No Vision needs: No Female Reproductive History Menstrual Age of Menarche: 11 Review of Systems Const Denies weight gain and Denies weight loss ENT Reports no additional complaints, Denies dysphagia and Denies odynophagia Card Reports no additional complaints Resp Reports no additional complaints GI Denies abdominal pain, Denies belching, Denies melena, Denies bloating, Denies change in bowel habits, Denies dysphagia, Denies excessive flatus, Denies dyspepsia, Denies heartburn, Denies diarrhea, Denies loose stools, Denies nausea, Denies odynophagia and Denies vomiting Musc Reports no additional complaints Neuro Reports no additional complaints Psych Reports no additional complaints Endo Reports no additional complaints Physical Exam Vital Signs: Last Vital Signs Pulse 70 05/17/24 14:49 BP 110/74 05/17/24 14:49 Pulse Ox 99 05/17/24 14:49 Oxygen Delivery Method Room Air 05/17/24 14:49 BMI result Body Mass Index 24.9 Const General: healthy appearing, no acute distress and well developed Nutritional Appearance: well nourished Orientation/consciousness: patient oriented x3 HEENT Head: Yes normal to inspection, Yes normocephalic and Yes atraumatic Face and sinus: Yes normal facial exam Mouth: Normal oral and palatal mucosa present Throat: Yes posterior oropharynx normal, Yes tonsils normal and Yes uvula midline Eyes General: appearance normal, both eyes and all related structures Neck Neck: Yes normal visual inspection, Yes full ROM and Yes trachea midline Thyroid: Thyroid normal Resp Effort & Inspection: normal respiratory effort, able to speak in complete sentences, no tracheal deviation and symmetric chest movement Auscultation: clear to auscultation bilaterally Cardio Jugular venous distension: no JVD Rate: regular rate Heart sounds: S1 normal heart sound present, S2 normal heart sound present, no gallops and no murmurs GI Inspection: Yes normal to inspection and No distended Palpation (GI): Soft to palpation, not firm, nontender and No hepatosplenomegaly present Auscultation: normal bowel sounds General: Yes no CVA tenderness Back/Spine/Pelvis Back: no CVA tenderness Skin General skin exam: elasticity normal, turgor normal and dry skin Neuro General: patient oriented x3 Psych Appearance: grossly normal Mental Status: mental status grossly normal Speech and movement: Normal speech and movement present Assessment & Plan Assessment & Plan (1) Constipation: Code(s): K59.00 - Constipation, unspecified Category: Medical Qualifiers: Constipation type: other constipation type Qualified Code(s): K59.09 - Other constipation (2) Abdominal cramping: Code(s): R10.9 - Unspecified abdominal pain Plan Patient will try to take MiraLax daily. Will check thyroid study, vitamin-D, B12, folate. Patient was encouraged to increase fluid intake and activity to promote better bowel motility. Patient will return in 8 weeks, sooner on as needed basis. If patient will continue to have pain despite moving her bowels we will send her for CT scan depending on symptoms. She is agreeable to this plan and verbalizes understanding of instructions. She was given the opportunity to ask questions and all questions answered. Thank you for allowing me to participate in her care Orders: Orders TSH reflex Free T4 05/17/24 K59.00 - Constipation, unspecified Vitamin D 25-OH (D2 and D3) 05/17/24 E55.9 - Vitamin D deficiency, unspecified Vitamin B12 and Folate 05/17/24 R19.7 - Diarrhea, unspecified Medications: New polyethylene glycol 3350 (Miralax) 17 grams PO DAILY 510 grams 2RF Coding Level of Care Code New Pt Level 3 (63379) Diagnoses Other constipation K59.09 Constipation type: other constipation type Abdominal cramping R10.9 Time Spent (min) 40 Comment 30 minutes spent with patient and additional 10 minutes spent reviewing her records
[2024-05-17 14:49] VITALS: BP 110/74; PULSE 70; O2SAT 99; BMI 24.9
== END 2024-05-17 15:25 | disposition home or self-care (01) ==
PROVIDERS: PCP Physician Assistant; Visit Provider Nurse Practitioner Family
DX: K59.09 Other constipation (principal); R10.9 Unspecified abdominal pain
CPT/HCPCS: 99203

== ENCOUNTER → 2024-05-17 14:28 | Outpatient (BNVA) | payer OTHER, SELFPAY | PROVIDERS: PCP Physician Assistant; Visit Provider Nurse Practitioner Family ==

== ENCOUNTER 2024-06-19 07:54 | Outpatient (REF) | payer OTHER, SELFPAY ==
[2024-06-19 09:53] LABS: TSH reflex Free T4 1.68 uIU/mL (0.32-4.0)
[2024-06-19 10:57] LABS: Folate 10.3 ng/mL (> or = 4.0); Vitamin B12 445 pg/mL (200-900)
[2024-06-24 14:13] LABS: Vitamin D 25-OH, D2 <4 ng/mL; Vitamin D 25-OH, D3 20 ng/mL; Vitamin D 25-OH, Total 20 ng/mL (30-100)
== END 2024-06-19 07:55 | disposition home or self-care (01) ==
LOC: HO.LAB 07:54
PROVIDERS: PCP Physician Assistant; Visit Provider Nurse Practitioner Family
DX: K59.00 Constipation, unspecified (principal); E55.9 Vitamin D deficiency, unspecified; R19.7 Diarrhea, unspecified
CPT/HCPCS: 36415; 82306; 82607; 82746; 84443

== ENCOUNTER 2025-03-29 10:16 | Outpatient (AMB) | payer OTHER, SELFPAY ==
[2025-03-29 10:20] VITALS: BP 110/74; BMI 22.8
--- NOTE | 2025-03-29 10:20 | MHC.OFFVIS ---
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: Laser Beam Machine Operator Present (Citlali) Allergies acetaminophen [From Percocet] Allergy (Severe, Verified 03/29/25 10:20) Vomiting oxycodone [From Percocet] Allergy (Severe, Verified 03/29/25 10:20) Vomiting peach [PEACH] Allergy (Mild, Verified 03/29/25 10:20) HIVES berries Allergy (Severe, Uncoded 01/22/24 11:19) hives Nectarines Allergy (Unknown, Uncoded 01/22/24 11:19) Throat closes Peaches Allergy (Unknown, Uncoded 01/22/24 11:19) Throat closes Is last menstrual period known: Yes Last menstrual period: 03/10/25 PFSH Medical History Anxiety Surgical History Hx of wisdom tooth extraction Family History Father Hypertension Maternal Grandfather Prostate cancer Social History Housing: House Alcohol intake: current Alcohol intake frequency: holidays/special occasions only Alcohol type: other Patient Tobacco Use Status: Never used Tobacco e-Cigarette/Vaping Use: Never Used Second Hand Smoke Exposure: No Substance Use Type: Marijuana service: No Current occupational status: employed Current occupational exposures/hazards: No Sexual orientation: Lesbian/Simental/Homosexual Gender identity: Female Cognitive needs: No Hearing needs: No Vision needs: No Female Reproductive History Menstrual Age of Menarche: 11 Duration of menses: 3-5 days Date of last menstrual period: 03/10/25 Total pregnancies: 0 Date of last pap smear: 03/23/24 (neg) Physical Exam Vital Signs: Last Vital Signs BP 110/74 03/29/25 10:20 BMI result Body Mass Index 22.8 Assessment & Plan Assessment & Plan Orders: Orders Bacterial Vaginosis Panel Today Z20.2 - Contact with and (suspected) exposure to infections with a predominantly sexual mode of transmission CT NG by PCR Today Z20.2 - Contact with and (suspected) exposure to infections with a predominantly sexual mode of transmission Coding
--- NOTE | 2025-03-29 10:26 | MHC.OFFVIS ---
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: Nursing Service Director Present (Citlali) Allergies acetaminophen [From Percocet] Allergy (Severe, Verified 03/29/25 10:20) Vomiting oxycodone [From Percocet] Allergy (Severe, Verified 03/29/25 10:20) Vomiting peach [PEACH] Allergy (Mild, Verified 03/29/25 10:20) HIVES berries Allergy (Severe, Uncoded 01/22/24 11:19) hives Nectarines Allergy (Unknown, Uncoded 01/22/24 11:19) Throat closes Peaches Allergy (Unknown, Uncoded 01/22/24 11:19) Throat closes Is last menstrual period known: Yes Last menstrual period: 03/10/25 HPI Comments Details: She is a premenopausal woman presenting for annual examination. 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 08:00 position only, no breast discharge, no injuries to area. Regular monthly menses. Currently is sexually active female only partner. She denies vaginal itching and irritation. STI screening offered; she accepts. She tries to eat healthy and stays active with exercise. Denies family history of breast, ovarian or colon cancer. Last pap smear 2023, negative. PFSH Medical History Anxiety Surgical History Hx of wisdom tooth extraction Family History Father Hypertension Maternal Grandfather Prostate cancer Social History Housing: House Alcohol intake: current Alcohol intake frequency: holidays/special occasions only Alcohol type: other Patient Tobacco Use Status: Never used Tobacco e-Cigarette/Vaping Use: Never Used Second Hand Smoke Exposure: No Substance Use Type: Marijuana service: No Current occupational status: employed Current occupational exposures/hazards: No Sexual orientation: Lesbian/Simental/Homosexual Gender identity: Female Cognitive needs: No Hearing needs: No Vision needs: No Female Reproductive History Menstrual Age of Menarche: 11 Duration of menses: 3-5 days Date of last menstrual period: 03/10/25 Total pregnancies: 0 Review of Systems Const All systems reviewed & are unremarkable except as noted in HPI and below Reports as per HPI Eyes Reports no additional complaints ENT Reports no additional complaints Card Reports no additional complaints Resp Reports no additional complaints GI Reports as per HPI and Reports no additional complaints Reports as per HPI Musc Reports no additional complaints Skin/Breast Reports as per HPI Neuro Reports no additional complaints Psych Reports no additional complaints Endo Reports no additional complaints Josué/Lymph Reports no additional complaints Aller/Immun Reports no additional complaints Physical Exam Vital Signs: Last Vital Signs BP 110/74 03/29/25 10:20 BMI result Body Mass Index 22.8 Const General: cooperative, healthy appearing, no acute distress, well developed and alert Orientation/consciousness: patient oriented x3 HEENT Head: Yes normal to inspection Eyes General: appearance normal, both eyes and all related structures Neck Neck: Yes normal visual inspection Thyroid: Thyroid normal Chest Chest palpation & inspection: normal inspection of the chest and other (no puckering, dimpling, peau de orange, retraction, discharge, masses) Breast/axilla inspection: normal inspection of the breasts Breast/axilla palpation: normal palpation of the breasts Resp Effort & Inspection: normal respiratory effort GI Inspection: Yes normal to inspection Palpation (GI): Soft to palpation Rectal Exam - Female: deferred General: Yes bladder normal to palpation External Female Exam: normal external appearance and normal appearance of the urethra Speculum Exam - Vagina: normal appearance of the vagina, normal palpation and normal vaginal discharge Speculum Exam - Cervix: normal appearance of the cervix and normal palpation Bimanual exam- vagina & uterus: normal bimanual exam, normal palpation, uterine size normal, bladder normal to palpation, normal palpation and non-tender Bimanual Exam- Adnexa, other: no masses Skin General skin exam: no rashes or lesions noted Rashes: no rashes Neuro General: patient oriented x3 Cognition (Neuro): normal cognition Extrem General: Yes normal to inspection Psych Attitude: cooperative Thought process: Normal thought process present Assessment & Plan Assessment & Plan (1) Encounter for well woman exam with routine gynecological exam: Code(s): Z01.419 - Encounter for gynecological examination (general) (routine) without abnormal findings Category: Medical Plan Discussed: Current recommendations for pap smears per ASCCP guidelines. Breast awareness and periodic breast exams. Report any ongoing breast pain or concerns further evaluation. BV and GC chlamydia panel obtained. Declines bloodwork. Maintain a healthy lifestyle including a well balanced diet and routine exercise. Patient verbalizes understanding and agrees to the plan of care. She was given opportunity to ask questions and all questions were answered to the best of my ability. RTO in one year for annual golf club weighter examination. This note is constructed using voice recognition software. While every effort has been made to ensure accuracy, machinist/machine builder errors may have been included. Orders: Orders Bacterial Vaginosis Panel Today Z20.2 - Contact with and (suspected) exposure to infections with a predominantly sexual mode of transmission CT NG by PCR Today Z20.2 - Contact with and (suspected) exposure to infections with a predominantly sexual mode of transmission Coding Level of Care Code New Pt Prev Care [id number] Diagnoses Encounter for well woman exam with routine gynecological exam Z01.419
--- OUTSIDE RECORDS SUMMARY | 2025-03-29 11:44 | XMS_ITS | Encounter Summary ---
Author Organization [facility] Address [address] [place] [phone] Phone Care Team Providers Care Birthing Nurse Name Role Phone Rani Fairbanks MD Primary Care Provider Encounter Details Date Type Department Care Team (Late st Contact Info) Description 02/21/2012 Documentation [facility] [place] [facility] [address] [place] [address] Family Medicine, Physician [address] [place], [place] [phone] Social History Tobacco Use Types Packs/Day Years Used Date Smoking Tobacco: Never Assessed Comments Unknown Sex and Gender Information Value Date Recorded Sex Assigned at Not on file Legal Sex Female 5:23 PM EDT Gender Identity Not on file Sexual Orientation Not on file documented as of this encounter Plan of Treatment Not on file documented as of this encounter Visit Diagnoses Not on filedocumented in this encounter Care Teams Birthing Nurse Relationship Specialty Start Date End Date Rani Fairbanks MD [address] [place] [phone] PCP - General 07/04/17 05/21/23 documented as of this encounter
--- OUTSIDE RECORDS SUMMARY | 2025-03-29 11:44 | XMS_ITS | Encounter Summary ---
Author Organization [facility] Address [address] [place] [phone] Phone Care Team Providers Care Case Sealer Name Role Phone Rani Fairbanks MD Primary Care Provider Encounter Details Date Type Department Care Team (Late st Contact Info) Description 03/07/2015 Documentation [facility] [place] [facility] [place] [address] [place] [address] Family Medicine, Physician [address] [place], [place] [phone] Social History Tobacco Use Types Packs/Day Years [...] on filedocumented in this encounter Care Teams Case Sealer Relationship Specialty Start Date End Date Rani Fairbanks MD [address] [place] [id number] PCP - General 07/04/17 05/21/23 documented as of this encounter
--- OUTSIDE RECORDS SUMMARY | 2025-03-29 11:44 | XMS_ITS | Encounter Summary ---
Author Organization [facility] Address [address] [place] [phone] Phone Care Team Providers Care Gravedigger Name Role Phone Rani Fairbanks MD Primary Care Provider Encounter Details Date Type Department Care Team (Late st Contact Info) Description 03/09/2014 Documentation [facility] [place] [address] [place] [address] Family Medicine, Physician [address] [place], [place] [phone] Social History Tobacco Use Types Packs/Day Years [...] on filedocumented in this encounter Care Teams Gravedigger Relationship Specialty Start Date End Date Rani Fairbanks MD [address] [place] [phone] PCP - General 07/04/17 05/21/23 documented as of this encounter
--- OUTSIDE RECORDS SUMMARY | 2025-03-29 11:44 | XMS_ITS | Encounter Summary ---
Author Organization [facility] Address [address] [place] [phone] Phone Care Team Providers Care Prototype Engineer Manager Name Role Phone Rani Fairbanks MD Primary Care Provider Encounter Details Date Type Department Care Team (Late st Contact Info) Description 03/21/2016 Documentation [facility] [place] [address] [place] [address] Family Medicine, Physician [address] [place], [place] [phone] Social History Tobacco Use Types Packs/Day Years [...] on filedocumented in this encounter Care Teams Prototype Engineer Manager Relationship Specialty Start Date End Date Rani Fairbanks MD [address] [place] [phone] PCP - General 07/04/17 05/21/23 documented as of this encounter
--- OUTSIDE RECORDS SUMMARY | 2025-03-29 11:44 | XMS_ITS | Encounter Summary ---
Author Organization [facility] Address [address] [place] [phone] Phone Care Team Providers Care Manager Golf Name Role Phone Rani Fairbanks MD Primary Care Provider Encounter Details Date Type Department Care Team (Late st Contact Info) Description 07/10/2017 Conversion Encounter [facility] [place] [facility] [address] [place] [address] Social History Tobacco Use Types Packs/Day Years Used Date Smoking Tobacco: Never Comments:Never smoker Comments Unknown Sex and Gender Information Value Date Recorded Sex Assigned at Not on file Legal Sex Female 5:23 PM EDT Gender Identity Not on file Sexual Orientation Not on file documented as of this encounter Plan of Treatment Not on file documented as of this encounter Visit Diagnoses Not on filedocumented in this encounter Care Teams Manager Golf Relationship Specialty Start Date End Date Rani Fairbanks MD [address] [place] [phone] PCP - General 07/04/17 05/21/23 documented as of this encounter
--- OUTSIDE RECORDS SUMMARY | 2025-03-29 11:44 | XMS_ITS | Data Portability ---
Author Organization [facility] Address [address] [place] [address] Assessment No assessment recorded. Plan of Treatment Reminders Order Date Submit Date Provider Last Modified By Organization Details Last Modified Time Details Appointments None recorded. Lab urinalysis , dipstick 2022 023 [facility], [address] [place] [address], [phone], 13:39:40 test, urine 2022 023 [facility], [address] [place] [address], [phone], 13:39:40 culture, urine 2022 023 [facility], [address] [place] [address], [place], [address], 14:07:14 Referral None recorded. Procedures None recorded. Surgeries None recorded. Imaging None recorded. Medication Orders Macrobid 100 mg capsule 2022 023 [facility][id number], [address] [facility], [place], [address], 13:44:32 Patient TargetsNo targets recorded. Patient Instructions Encounter Date Encounter Id Patient Instructions Last Modified By Organization Details Last Modified Time 01/25/2023 [id number] We recommend you get a repeat urinalysis in 2 weeks to ensure that any abnormalities have resolved. If urine abnormalities persist, you will likely need further testing or treatment. We will contact you within 3 to 5 days with the results of your lab test. If you have not heard back from us within that time frame, please feel free to contact our office regarding your results. Go to the Emergency Department immediately if your symptoms worsen or if you develop new symptoms that concern you. Drink plenty of fluids You should follow-up with your PCP in 4-5 days, or at any time if your condition does not improve or worsens. Any acute change should prompt a visit to the nearest Emergency Department. dianna Not available 01/25/2023 13:44:09 Reason for Referral None Reported. Results Created Date Observation Date Name Description Value Unit Range Abnormal Flag Note LastModifiedBy Organization Detail LastModifiedTime 01/26/2001/29/2023 URINE CULTU REBECKA NE urine culture, routine FINAL REPORT Not Available [facility] ([facility]) [address] [facility], [place], [address], 01/29/2023 14:07:13 01/26/20 23 01/29/2023 URINE CULTU RE, LYNNI NE result 1 LACTOB ACILLU S SPECIE S 10,00 0-25, 000 colon y formi ng units per mL Susce ptibi lity not holli lly perfo rmed on this organ ism. Not Available [facility] ([facility]) [address] [facility], [place], [address], 01/29/2023 14:07:13 01/26/20 23 01/25/2023 pregn robert test, urine Unknown Analyte Normal = Negati ve Not Available [facility] [address] [place] [address], [phone], 01/25/2023 12:32:17 01/26/20 23 01/25/2023 pregn robert test, urine Unknown Analyte negati ve Not Available [facility] [address] [place] [address], [phone], 01/25/2023 12:32:17 01/26/20 23 01/25/2023 urina lysis , dipst ick Unknown Analyte Normal = light yellow Not Available [facility] [address], [place], [address], 01/25/2023 12:32:17 01/26/20 23 01/25/2023 urina lysis , dipst ick Unknown Analyte Yellow Not Available [facility] [address], [place], [address], 01/25/2023 12:32:17 01/26/20 23 01/25/2023 urina lysis , dipst ick Unknown Analyte Normal = clear Not Available [facility]ina flores [address], [place], [address], 01/25/2023 12:32:17 01/26/20 23 01/25/2023 urina lysis , dipst ick Unknown Analyte Cloudy Not Available chuck [address], [place], [address], 01/25/2023 12:32:17 01/26/20 23 01/25/2023 urina lysis , dipst ick Unknown Analyte Normal = negati ve Not Available [facility] [address], [place], [address], 01/25/2023 12:32:17 01/26/20 23 01/25/2023 urina lysis , dipst ick Unknown Analyte Negati ve Not Available [facility] [address], [place], [address], 01/25/2023 12:32:17 01/26/20 23 01/25/2023 urina lysis , dipst ick Unknown Analyte Normal = Negati ve Not Available [facility] flores [address], [place], [address], 01/25/2023 12:32:17 01/26/20 23 01/25/2023 urina lysis , dipst ick Unknown Analyte Negati ve Not Available [facility]estina flores [address], [place], [address], 01/25/2023 12:32:17 01/26/20 23 01/25/2023 urina lysis , dipst ick Unknown Analyte Normal = Negati ve Not Available [address] [address], [place], [address], 01/25/2023 12:32:17 01/26/20 23 01/25/2023 urina lysis , dipst ick Unknown Analyte Negati ve Not Available [facility]estina flores [address], [place], [place], [address], 01/25/2023 12:32:17 01/26/20 23 01/25/2023 urina lysis , dipst ick Unknown Analyte Normal = 1.010, 1.015, 1.020 Not Available celestina flores [address], [place], [place], [address], 01/25/2023 12:32:17 01/26/20 23 01/25/2023 urina lysis , dipst ick Unknown Analyte 1.015 Not Available [address], [place], [address], 01/25/2023 12:32:17 01/26/20 23 01/25/2023 urina lysis , dipst ick Unknown Analyte Normal = Negati ve Not Available [facility]ina flores [address], [place], [address], 01/25/2023 12:32:17 01/26/20 23 01/25/2023 urina lysis , dipst ick Unknown Analyte Trace- intact Not Available celestina flores [address], [place], [address], 01/25/2023 12:32:17 01/26/20 23 01/25/2023 urina lysis , dipst ick Unknown Analyte Normal = 6.5, 7.0, 7.5, 8.0 Not Available [address], [place], [address], 01/25/2023 12:32:17 01/26/20 23 01/25/2023 urina lysis , dipst ick Unknown Analyte 8.5 Not Available [address], [place], [address], 01/25/2023 12:32:17 01/26/20 23 01/25/2023 urina lysis , dipst ick Unknown Analyte Normal = Negati ve Not Available [address], [place], [address], 01/25/2023 12:32:17 01/26/20 23 01/25/2023 urina lysis , dipst ick Unknown Analyte 30 mg/dL Not Available [address], [place], [address], 01/25/2023 12:32:17 01/26/20 23 01/25/2023 urina lysis , dipst ick Unknown Analyte Normal = 0.2, 1.0 Not Available [address], [place], [address], 01/25/2023 12:32:17 01/26/20 23 01/25/2023 urina lysis , dipst ick Unknown Analyte 0.2 E.U./d L Not Available [address] [place] [address], [place], [address], 01/25/2023 12:32:17 03/04/01/25/2023 urina lysis , dipst ick Unknown Analyte Normal = Negati ve Not Available [address] [place], [address], 01/25/2023 12:32:17 01/26/2001/25/2023 urina lysis , dipst ick Unknown Analyte Negati ve Not Available [facility] [address] [place], [address], 01/25/2023 12:32:17 01/26/20 23 01/25/2023 urina lysis , dipst ick Unknown Analyte Normal = Negati ve Not Available [address], [place], [address], 01/25/2023 12:32:17 01/26/20 23 01/25/2023 urina lysis , dipst ick Unknown Analyte Trace Not Available [address] [place] [address], [address], 01/25/2023 12:32:17 Result Notes None recorded. Problems Name Problem SNOMED Code Status Onset Date Resolution Date Notes Provider Name and Address Organization Details Recorded Time Vitamin D deficiency 68071178 Active 023 ART Dougherty - [facility] 12:33:58 Problem Notes None recorded. Medical Equipment None Reported. Allergies No known drug allergies Medications Name Sig Start Date Stop Date Status Note LastModified by Organization Details LastModified Time Macrobid 100 mg capsule Take 1 capsule every 12 hours by oral route with meals for 7 days. 2022 active Not Available Not Available Not Avai lable cholecalciferol (vitamin D3) 1,250 mcg (50,000 unit) capsule TAKE 1 CAPSULE ORALLY EVERY WEEK active Not Available Not Available No t Available Vitals Date Recorded Body height Body mass index (BMI) Body weight Oxygen saturation Oxygen saturation in Arterial blood by Pulse oximetry Pain severity - 0-10 verbal numeric rating [Score] - Reported Heart rate Respiratory rate Body temperature Systolic blood pressure Diastolic blood pressure Provider Name and Address Organization Details Last Updated DateTime 162.56 cm 28.3 kg/m2 85095.7 4 g 99 % 99 % 4 86 /min 20 /min 97.9 [degF] 121 mm[Hg] 84 mm[Hg] Julienne Abraham PA - [facility] 12:35:54 Social History Question Answer Notes LastModified by Organizat ion Details LastModified Time Tobacco Smoking Status Never Smoker Julienne hubbard PA - [facility] 01/25/2023 12:34:16 What Is Your Level Of Alcohol Consumption? None Information not available 01/25/2023 Have You Had Direct Contact, Or Contact During Intimacy, With Monkeypox Rash, Scabs, Or Body Fluids From A Person With Monkeypox? No Information not available 01/25/2023 Do You Use Any Illicit Or Recreational Drugs? No Information not available 01/25/2023 Have You Recently Traveled Abroad? No Information not available 01/25/2023 Do You Or Have You Ever Used Any Other Forms Of Tobacco Or Nicotine? No Information not available 01/25/2023 Sex: Unknown Functional Status None recorded. Mental Status None recorded. Family History Relationship Description Onset Age of this Age Resolved Age Notes LastModified by Organization Details LastModified Time Father No current problems or disability Not available 01/25 12:34:09 Mother No current problems or disability Not available 01/25 12:34:09 Medical History No medical history recorded. Gynecological HistoryNo gynecological history recorded. Obstetrics History GPAL:G 0 P 0 0 0 0 Immunizations Vaccine Type Date Status Note Provider Nam e and Address Organization Details Recorded Time Tdap 8 completed Julienne hubbard PA [place] [facility] 01/25/2023 12:33:37 Td (adult), 2 Lf tetanus toxoid, preservative free, adsorbed 8 completed Julienne hubbard PA - [facility] 01/25/2023 12:33:37 meningococcal MCV4P 7 completed JulienneART Henley [facility] 01/25/2023 12:33:37 Influenza, split virus, quadrivalent, PF 9 completed ART Dougherty [facility] 01/25/2023 12:33:37 Past Encounters Encounter ID Performer Location Encounter Start Date Encounter Closed Date Diagnosis/Indication Diagnosis SNOMED-CT Code Diagnosis ICD10 Code Diagnosis Note [id number] [facility] [address] [place] [address] 06/04/2020 18:27:58 06/04/2020 19:57:50 [id number] Kieran Gates G[employer]ATER[employer] ATTENDANT [address] [address] 01/25/2023 12:29:03 01/25/2023 13:46:28 Acute urinary tract infection 811893332 N39.0 Health Concerns Section Related Observation LastModified by Organization Detai ls LastModified Time None Recorded Concern Status LastModified by Organization Details LastModified Time None Recorded Advance Directives Directive None Recorded Payers Encounter Date Sequence Insurance Name Policy Number Policy Mcmahon Covered Member ID Mcmahon Member ID Guarantor Name 06/04/2020 1 [place] [id number] Sarahi Root [id number] Sarahi Root 01/25/2023 [employer] [id number] Sarahi Root [id number] Notes Date Note Type Note Provider Name and Address Organization Details Recorded Time 3 text/html Urinary Complaint FemaleReported bypatient.source of patient informationInformation obtained from patient; Patient arrived at Urgent Care ambulatory UTI Symptoms:no blood in the urine; no pain during urination; no vaginal discharge; no urgency; no pain in the flank; no fever/chills; no incontinence; no recurrent UTI; no known exposure to STDNotes:frequency and urgency x 1 day. denies any fever or fever with chills, denies any History of renal stone or bladder issues. frequency and urgency x 1 day. denies any fever or fever with chills, denies any History of renal stone or bladder issues. Kieran Gates NP [address] [place], [address], PA - [facility] 01/25/2023 13:45:10 OBGyn Episode No OBEpisode recorded.
--- OUTSIDE RECORDS SUMMARY | 2025-03-29 11:44 | XMS_ITS | Encounter Summary ---
Author Organization [facility] Address [address] [place] [address] Phone Care Team Providers Care Ophthalmic Medical Technician Name Role Phone Rani Fairbanks MD Primary Care Provider Encounter Details Date Type Department Care Team (Late st Contact Info) Description 04/01/2017 Documentation [facility] [place] [facility] [address] [place] [address] Family Medicine, Physician [address] [place], [place] [phone] Social History Tobacco Use Types Packs/Day Years [...] on filedocumented in this encounter Care Teams Ophthalmic Medical Technician Relationship Specialty Start Date End Date Rani Fairbanks MD [address] [place] [phone] PCP - General 07/04/17 05/21/23 documented as of this encounter
--- OUTSIDE RECORDS SUMMARY | 2025-03-29 11:44 | XMS_ITS | Encounter Summary ---
Author Organization [facility] Address [address] [place] [address] Phone Care Team Providers Care Order Processing Manager Name Role Phone Rani Fairbanks MD Primary Care Provider Encounter Details Date Type Department Care Team (Late st Contact Info) Description 03/09/2014 Documentation [facility] [place] [facility] Medicine [address] [place] [address] Family Medicine, Physician [address] [place], [place] [phone] Social History Tobacco Use Types Packs/Day Years [...] on filedocumented in this encounter Care Teams Order Processing Manager Relationship Specialty Start Date End Date Rani Fairbanks MD [address] [place] [address] PCP - General 07/04/17 05/21/23 documented as of this encounter
--- OUTSIDE RECORDS SUMMARY | 2025-03-29 11:44 | XMS_ITS | Encounter Summary ---
Author Organization [facility] Address [address] [place] [address] Phone Care Team Providers Care Ager Operator Name Role Phone Rani Fairbanks MD Primary Care Provider Encounter Details Date Type Department Care Team (Late st Contact Info) Description 03/08/2014 Documentation [facility] [place] Family Medicine [address] [place] [address] Family Medicine, Physician [address] [place], [place] [phone] Social History Tobacco Use Types Packs/Day Years [...] on filedocumented in this encounter Care Teams Ager Operator Relationship Specialty Start Date End Date Rani Fairbanks MD [address] [place] [address] PCP - General 07/04/17 05/21/23 documented as of this encounter
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
--- OUTSIDE RECORDS SUMMARY | 2025-03-29 11:44 | XMS_ITS | Encounter Summary ---
Author Organization [facility] Address [address] [place] [address] Phone Care Team Providers Care Meat Sales And Storage Manager Name Role Phone Rani Fairbanks MD Primary Care Provider Encounter Details Date Type Department Care Team (Late st Contact Info) Description 03/07/2015 Documentation [facility] [place] [address] [place] [address] Family Medicine, Physician [address] [place], [place] [phone] Social History Tobacco Use Types Packs/Day Years [...] on filedocumented in this encounter Care Teams Meat Sales And Storage Manager Relationship Specialty Start Date End Date Rani Fairbanks MD [address] [place] [phone] PCP - General 07/04/17 05/21/23 documented as of this encounter
--- OUTSIDE RECORDS SUMMARY | 2025-03-29 11:44 | XMS_ITS | Encounter Summary ---
Author Organization [facility] Address [address] [place] [address] Phone Care Team Providers Care Utility Aircrewman Name Role Phone Rani Fairbanks MD Primary Care Provider Encounter Details Date Type Department Care Team (Late st Contact Info) Description 04/01/2017 Documentation [facility] [place] Family Medicine [address] [place] [address] Family Medicine, Physician [address] [place], [place] [phone] Social History Tobacco Use Types Packs/Day Years [...] on filedocumented in this encounter Care Teams Utility Aircrewman Relationship Specialty Start Date End Date Rani Fairbanks MD [address] [place] [address] PCP - General 07/04/17 05/21/23 documented as of this encounter
--- OUTSIDE RECORDS SUMMARY | 2025-03-29 11:44 | XMS_ITS | Encounter Summary ---
Author Organization [facility] Address [address] [place] [address] Phone Care Team Providers Care Guard Dance Hall Name Role Phone Rani Fairbanks MD Primary Care Provider Encounter Details Date Type Department Care Team (Late st Contact Info) Description 04/01/2017 Documentation [facility] [place] Family Medicine [address] [place] [address] Family Medicine, Physician [address] [place], [place] [phone] Social History Tobacco Use Types Packs/Day Years [...] on filedocumented in this encounter Care Teams Guard Dance Hall Relationship Specialty Start Date End Date Rani Fairbanks MD [address] [place] [address] PCP - General 07/04/17 05/21/23 documented as of this encounter
--- OUTSIDE RECORDS SUMMARY | 2025-03-29 11:44 | XMS_ITS | Encounter Summary ---
Author Organization [facility] Address [address] [place] [address] Phone Care Team Providers Care Chlorobutadiene Scrubber Operator Name Role Phone Rani Fairbanks MD Primary Care Provider [phone] Encounter Details Date Type Department Care Team (Late st Contact Info) Description 02/21/2012 Documentation [facility] [place] Family Medicine [address] [place] [address] Family Medicine, Physician [address] [place], [place] [phone] Social History Tobacco Use Types Packs/Day Years [...] on filedocumented in this encounter Care Teams Chlorobutadiene Scrubber Operator Relationship Specialty Start Date End Date Rani Fairbanks MD [address] [place] [address] PCP - General 07/04/17 05/21/23 documented as of this encounter
--- OUTSIDE RECORDS SUMMARY | 2025-03-29 11:44 | XMS_ITS | Encounter Summary ---
Author Organization [facility] Address [address] [place] [address] Phone Care Team Providers Care Loss Prevention Leader Name Role Phone Rani Fairbanks MD Primary Care Provider Encounter Details Date Type Department Care Team (Late st Contact Info) Description 03/07/2015 Documentation [facility] [place] Family Medicine [address] [place] [address] Family Medicine, Physician [address] [place], [place] [phone] Social History Tobacco Use Types Packs/Day Years [...] on filedocumented in this encounter Care Teams Loss Prevention Leader Relationship Specialty Start Date End Date Rani Fairbanks MD [address] [place] [address] PCP - General 07/04/17 05/21/23 documented as of this encounter
--- OUTSIDE RECORDS SUMMARY | 2025-03-29 11:44 | XMS_ITS | Encounter Summary ---
Author Organization [facility] Address [address] [place] [address] Care Team Providers Care Printed Circuit Boards Pinner Name Role Phone Rani Fairbanks Primary Care Provider Unava ilable Encounter Details Date Type Department Care Team Description 12/04/[address] [address] Cindy Estes CNM Social History Tobacco Use Types Packs/Day Years Used Date Smoking Tobacco: Never Smokeless Tobacco: Never Alcohol Use Standard Drinks/Week Comments Yes 0 (1 standard drink = 0.6 oz pur e alcohol) rare Sex Assigned at Date Recorded Not on file documented as of this encounter Plan of Treatment Not on file documented as of this encounter Visit Diagnoses Not on filedocumented in this encounter Care Teams Printed Circuit Boards Pinner Relationship Specialty Start Date End Date Rani Fairbanks PCP - General Pediatrics 11/05/18 documented as of this encounter
--- OUTSIDE RECORDS SUMMARY | 2025-03-29 11:45 | XMS_ITS | Encounter Summary ---
Author Organization [facility] Address [address] [place] [address] Phone Care Team Providers Care Medical Laboratory Technician Name Role Phone Rani Fairbanks MD Primary Care Provider Encounter Details Date Type Department Care Team (Late st Contact Info) Description 03/21/2016 Documentation [facility] Family Medicine [address] [place] [address] Family Medicine, Physician [address] [place], [place] [phone] Social History Tobacco Use Types Packs/Day Years [...] on filedocumented in this encounter Care Teams Medical Laboratory Technician Relationship Specialty Start Date End Date Rani Fairbanks MD [address] [place] [address] PCP - General 07/04/17 05/21/23 documented as of this encounter
--- OUTSIDE RECORDS SUMMARY | 2025-03-29 11:45 | XMS_ITS | Encounter Summary ---
Author Organization [facility] Address [address] [place] [address] Phone Care Team Providers Care Virtual Classroom Manager Name Role Phone Rani Fairbanks MD Primary Care Provider Encounter Details Date Type Department Care Team (Late st Contact Info) Description 03/29/2016 Documentation [facility] [place] Family Medicine [address] [place] [address] Family Medicine, Physician [address] [place], [place] [phone] Social History Tobacco Use Types Packs/Day Years [...] on filedocumented in this encounter Care Teams Virtual Classroom Manager Relationship Specialty Start Date End Date Rani Fairbanks MD [address] [place] [address] PCP - General 07/04/17 05/21/23 documented as of this encounter
== END 2025-03-29 10:56 | disposition home or self-care (01) ==
LOC: HO.HWS 10:16
PROVIDERS: PCP Physician Assistant; Visit Provider Advanced Practice Midwife
DX: Z01.419 Encounter for gynecological examination (general) (routine) without abnormal findings (principal)
CPT/HCPCS: 99395; 99459

== ENCOUNTER 2025-03-29 10:16 | Outpatient (REF) | payer OTHER, SELFPAY ==
--- OUTSIDE RECORDS SUMMARY | 2025-03-29 12:27 | XMS_ITS | Encounter Summary ---
Author Organization [facility] Address [address] [place] [address] Phone Care Team Providers Care Real Estate Administrative Assistant Name Role Phone Rnai Fairbanks MD Primary Care Provider Encounter Details Date Type Department Care Team (Late st Contact Info) Description 04/01/2017 Documentation [facility] [place] [address] [place] [address] Family Medicine, Physician [address] [place], [place] [phone] Social History Tobacco Use Types Packs/Day Years [...] on filedocumented in this encounter Care Teams Real Estate Administrative Assistant Relationship Specialty Start Date End Date Rani Fairbanks MD [address] [place] [address] PCP - General 07/04/17 05/21/23 documented as of this encounter
--- OUTSIDE RECORDS SUMMARY | 2025-03-29 12:27 | XMS_ITS | Encounter Summary ---
Author Organization [facility] Address [address] [place] [address] Phone Care Team Providers Care Welder Experimental Name Role Phone Rani Fairbanks MD Primary Care Provider [phone] Encounter Details Date Type Department Care Team (Late st Contact Info) Description 03/07/2015 Documentation [facility] [address] [place] [address] Family Medicine, Physician [address] [place], [place] [phone] Social History Tobacco Use Types Packs/Day Years [...] on filedocumented in this encounter Care Teams Welder Experimental Relationship Specialty Start Date End Date Rani Fairbanks MD [address] [place] [address] PCP - General 07/04/17 05/21/23 documented as of this encounter
--- OUTSIDE RECORDS SUMMARY | 2025-03-29 12:27 | XMS_ITS | Encounter Summary ---
Author Organization [facility] Address [address] [place] [address] Phone Care Team Providers Care Dope Heater Name Role Phone Rani Fairbanks MD Primary Care Provider Encounter Details Date Type Department Care Team (Late st Contact Info) Description 03/21/2016 Documentation [facility] [place] Family Medicine [address] [place] [address] Family Medicine, Physician [address] [place], [place] [phone] Social History Tobacco Use Types Packs/Day Years [...] on filedocumented in this encounter Care Teams Dope Heater Relationship Specialty Start Date End Date Rani Fairbanks MD [address] [place] [address] PCP - General 07/04/17 05/21/23 documented as of this encounter
--- OUTSIDE RECORDS SUMMARY | 2025-03-29 12:27 | XMS_ITS | Encounter Summary ---
Author Organization [facility] Address [address] [place] [address] Phone Care Team Providers Care Rural Mail Contractor Name Role Phone Rani Fairbanks MD Primary Care Provider Encounter Details Date Type Department Care Team (Late st Contact Info) Description 04/01/2017 Documentation [facility] [place] [address] [place] [address] Family Medicine, Physician [address] [place], [place] [phone] Social History Tobacco Use Types Packs/Day Years [...] on filedocumented in this encounter Care Teams Rural Mail Contractor Relationship Specialty Start Date End Date Rani Fairbanks MD [address] [place] [address] PCP - General 07/04/17 05/21/23 documented as of this encounter
--- OUTSIDE RECORDS SUMMARY | 2025-03-29 12:27 | XMS_ITS | Encounter Summary ---
Author Organization [facility] Address [address] [place] [address] Phone Care Team Providers Care Cosmetic Account Coordinator Name Role Phone Rani Fairbanks MD Primary Care Provider Encounter Details Date Type Department Care Team (Late st Contact Info) Description 03/07/2015 Documentation [facility] [place] Family Medicine [address] [place] [address] Family Medicine, Physician [address] [place], [place] [phone] Social History Tobacco Use Types Packs/Day Years [...] on filedocumented in this encounter Care Teams Cosmetic Account Coordinator Relationship Specialty Start Date End Date Rani Fairbanks MD [address] [place] [address] PCP - General 07/04/17 05/21/23 documented as of this encounter
--- OUTSIDE RECORDS SUMMARY | 2025-03-29 12:27 | XMS_ITS | Encounter Summary ---
Author Organization [facility] Address [address] [place] [address] Phone Care Team Providers Care Run Lead Name Role Phone Rani Fairbanks MD Primary Care Provider Encounter Details Date Type Department Care Team (Late st Contact Info) Description 04/01/2017 Documentation [facility] [place] Family Medicine [address] [place] [address] Family Medicine, Physician [address] [place], [place] [phone] Social History Tobacco Use Types Packs/Day Years [...] on filedocumented in this encounter Care Teams Run Lead Relationship Specialty Start Date End Date Rani Fairbanks MD [address] [place] [address] PCP - General 07/04/17 05/21/23 documented as of this encounter
--- OUTSIDE RECORDS SUMMARY | 2025-03-29 12:27 | XMS_ITS | Encounter Summary ---
Author Organization [facility] Address [address] [place] [address] Phone Care Team Providers Care Key Ringer Name Role Phone Rani Fairbanks MD Primary Care Provider Encounter Details Date Type Department Care Team (Late st Contact Info) Description 07/10/2017 Conversion Encounter [facility] [address] [place] [address] Social History Tobacco Use Types Packs/Day Years [...] on filedocumented in this encounter Care Teams Key Ringer Relationship Specialty Start Date End Date Rani Fairbanks MD [address] [place] [address] PCP - General 07/04/17 05/21/23 documented as of this encounter
--- OUTSIDE RECORDS SUMMARY | 2025-03-29 12:27 | XMS_ITS | Encounter Summary ---
Author Organization [facility] Address [address] [place] [address] Care Team Providers Care Newspaper Writer Name Role Phone Joshua Maza MD Primary Care Provider Rani Esteban Primary Care Provider Vilma bustillos Encounter Details Date Type Department Care Team Description 07/28/2018 Release of Information Medical Records [address] [place] [address] Abstract, Provider Social History Tobacco Use Types Packs/Day Years Used Date Smoking Tobacco: Never Smokeless Tobacco: Never Alcohol Use Standard Drinks/Week Comments No 0 (1 standard drink = 0.6 oz pur e alcohol) Sex Assigned at Date Recorded Not on file documented as of this encounter Plan of Treatment Not on file documented as of this encounter Visit Diagnoses Not on filedocumented in this encounter Care Teams Newspaper Writer Relationship Specialty Start Date End Date Joshua Maza MD PCP - General Internal Medicine 06/12/18 11/04/18 Rani Fairbanks PCP - General Pediatrics 11/05/18 documented as of this encounter
--- OUTSIDE RECORDS SUMMARY | 2025-03-29 12:27 | XMS_ITS | Encounter Summary ---
Author Organization [facility] Address [address] [place] [address] Phone Care Team Providers Care Group Leader Semiconductor Testing Name Role Phone Rani Fairbanks MD Primary Care Provider Encounter Details Date Type Department Care Team (Late st Contact Info) Description 03/08/2014 Documentation [facility] [place] [address] [place] [address] Family Medicine, Physician [address] [place], [place] [phone] Social History Tobacco Use Types Packs/Day Years [...] on filedocumented in this encounter Care Teams Group Leader Semiconductor Testing Relationship Specialty Start Date End Date Rani Fairbanks MD [address] [place] [address] PCP - General 07/04/17 05/21/23 documented as of this encounter
--- OUTSIDE RECORDS SUMMARY | 2025-03-29 12:27 | XMS_ITS | Clinical Summary ---
Author Organization [facility] Address [address] [place] [address] Phone Care Team Providers Care Vacation Planner Name Role Phone Unavailable Primary Care Provider Unavailabl e Allergies Active Allergy Reactions Criticality Noted Date Comments Food 03/06/2018 Nectarines, peaches Prunus Persica Other reaction(s): Medications LARISSIA 0.1-20 MG-MCG per tablet Take 1 tablet by mouth once daily. 3 09/18/2018 Active Active Problems Problem Noted Date Diagnosed Date RLQ abdominal pain 02/22/2019 Overview (02/22/2019): Reports many month hx of RLQ pain. [facility]en [facility] ER 02/17 for blood in her sputum [...] her lung. It hurts breath, laugh, Saw CERTIFICATION OFFICER on September Amplified musculoskeletal pain, diffuse 02/23/20 19 Overview (02/22/2019): Pt with multiple c/o pain -Abd RLQ and epigastric, chest, headaches, face tingling, left eye sensitive to light and with occas blurry vision. Pain keeps her up at night. Assessment & Plan (02/22/2019 4:54 PM EDT): Working at the [employer] 30 hours per week. Pt reports she [...] complete this topic Procedures * Due to [place] state law, this organization might not be sharing sensitive test results. Procedure Name Priority Date/Time Associated Diagnosis Comments CHLAMYDIA AND GONORRHEA, AMPLIFIED Routine 11/04/2018 6:23 PM EST Screening examination for bacterial and spirochetal disease from Last 3 Months or Most Recently Relevant to Health Maintenance Results * Due to [place] state law, this organization might not be sharing sensitive test results. * Chlamydia and Gonorrhoea, Amplified (11/04/2018 6:23 PM EST) Chlamydia Trachomatis, DNA Probe NEGATIVE (NEG) [facility] Comment: No Chlamydia Trachomatis RNA detected in this patient's sample ? (REFERENCE RANGE/NORMAL VALUE: NOT DETECTED) ? Note: This test uses chemists- mediated amplification method to detect rRNA from C. Trachomatis URINE GC AMP PROBE NEGATIVE (NEG) [facility] Comment: No Neisseria Gonorrhoeae RNA detected in this patient's sample ? (REFERENCE RANGE/NORMAL VALUE: NOT DETECTED) ? NOTE: This test uses chemists-mediated amplification method to detect rRNA from N.Gonorrhoeae. [...] without risk of sexual abuse. Consult the [facility] if needed. Contact phone number . Therapeutic failure or success cannot be determined with the Aptima Combo2 assay since nucleic acid may persist following appropriate antimicrobial therapy. The Centers for Disease Control and Prevention (CDC) recommends confirmatory retesting using culture or a different nucleic acid amplification test when positive results occur, if indicated. Testing performed or reported by [facility], a Service of [facility], [facility] [place] [id number] CLIA [id number] Christiano Tsang MD, Claim Taker Urine 11/04/2018 6:23 PM EST 11/04/2018 9:46 PM EST us Promise Og MD LAB MICROBIOLOGY - GENERAL ORDER DANIEL Final Result [facility] from Last 3 Months or Most Recently Relevant to Health Maintenance
--- OUTSIDE RECORDS SUMMARY | 2025-03-29 12:27 | XMS_ITS | Encounter Summary ---
Author Organization [facility] Address [address] [place] [address] Phone Care Team Providers Care Construction Equipment Mechanic Name Role Phone Rani Fairbanks MD Primary Care Provider Encounter Details Date Type Department Care Team (Late st Contact Info) Description 03/09/2014 Documentation [facility] [place] Family Medicine [address] [place] [address] Family Medicine, Physician [address] [place], [place] [phone] Social History Tobacco Use Types Packs/Day Years [...] on filedocumented in this encounter Care Teams Construction Equipment Mechanic Relationship Specialty Start Date End Date Rani Fairbanks MD [address] [place] [address] PCP - General 07/04/17 05/21/23 documented as of this encounter
--- OUTSIDE RECORDS SUMMARY | 2025-03-29 12:27 | XMS_ITS | Encounter Summary ---
Author Organization [facility] Address [address] [place] [address] Phone Care Team Providers Care Formulator Name Role Phone Rani Fairbanks MD Primary Care Provider Encounter Details Date Type Department Care Team (Late st Contact Info) Description 03/07/2015 Documentation [facility] [place] [address] [place] [address] Family Medicine, Physician [address] [place], [place] [phone] Social History Tobacco Use Types Packs/Day Years [...] on filedocumented in this encounter Care Teams Formulator Relationship Specialty Start Date End Date Rani Fairbanks MD [address] [place] [address] PCP - General 07/04/17 05/21/23 documented as of this encounter
--- OUTSIDE RECORDS SUMMARY | 2025-03-29 12:27 | XMS_ITS | Encounter Summary ---
Author Organization [facility] Address [address] [place] [address] Phone Care Team Providers Care Tile Layer Name Role Phone Rani Fairbanks MD Primary Care Provider Encounter Details Date Type Department Care Team (Late st Contact Info) Description 02/21/2012 Documentation [facility] [place] [address] [place] [address] Family Medicine, Physician [address] [place], [place] [phone] Social History Tobacco Use Types Packs/Day Years [...] on filedocumented in this encounter Care Teams Tile Layer Relationship Specialty Start Date End Date Rani Fairbanks MD [address] [place] [address] PCP - General 07/04/17 05/21/23 documented as of this encounter
--- OUTSIDE RECORDS SUMMARY | 2025-03-29 12:27 | XMS_ITS | Encounter Summary ---
Author Organization [facility] Address [address] [place] [address] Phone Care Team Providers Care Help Desk Representative Name Role Phone Rani Fairbanks MD Primary Care Provider Encounter Details Date Type Department Care Team (Late st Contact Info) Description 02/21/2012 Documentation [facility] [place] [address] [place] [address] Family Medicine, Physician [address] [place], [place] [phone] Social History Tobacco Use Types Packs/Day Years [...] on filedocumented in this encounter Care Teams Help Desk Representative Relationship Specialty Start Date End Date Rani Fairbanks MD [address] [place] [address] PCP - General 07/04/17 05/21/23 documented as of this encounter
--- OUTSIDE RECORDS SUMMARY | 2025-03-29 12:27 | XMS_ITS | Encounter Summary ---
Author Organization [facility] Address [address] [place] [address] Care Team Providers Care Manager Market Research Name Role Phone Rani Fairbanks Primary Care Provider Unava ilable Encounter Details Date Type Department Care Team Description 12/04/[address] [address] Cindy Estes CNM Social History Tobacco Use [...] filedocumented in this encounter Care Teams Manager Market Research Relationship Specialty Start Date End Date Rani Fairbanks PCP - General Pediatrics 11/05/18 documented as of this encounter
--- OUTSIDE RECORDS SUMMARY | 2025-03-29 12:27 | XMS_ITS | Encounter Summary ---
Author Organization [facility] Address [address] [place] [address] Phone Care Team Providers Care High School Social Studies Teacher Name Role Phone Rani Fairbanks MD Primary Care Provider Encounter Details Date Type Department Care Team (Late st Contact Info) Description 03/21/2016 Documentation [facility] [place] [address] [place] [address] Family Medicine, Physician [address] [place], [place] [phone] Social History Tobacco Use Types Packs/Day Years [...] on filedocumented in this encounter Care Teams High School Social Studies Teacher Relationship Specialty Start Date End Date Rani Fairbanks MD [address] [place] [address] PCP - General 07/04/17 05/21/23 documented as of this encounter
--- OUTSIDE RECORDS SUMMARY | 2025-03-29 12:27 | XMS_ITS | Encounter Summary ---
Author Organization [facility] Address [address] [place] [address] Phone Care Team Providers Care Manager Medical Name Role Phone Rani Fairbanks MD Primary Care Provider Encounter Details Date Type Department Care Team (Late st Contact Info) Description 03/29/2016 [place] [facility] [place] [address] [place] [address] Family Medicine, Physician [address] [place], [place] [phone] Social History Tobacco Use Types Packs/Day Years [...] filedocumented in this encounter Care Teams Manager Medical Relationship Specialty Start Date End Date Rani Fairbanks MD [address] [place] [address] PCP - General 07/04/17 05/21/23 documented as of this encounter
--- OUTSIDE RECORDS SUMMARY | 2025-03-29 12:27 | XMS_ITS | Encounter Summary ---
Author Organization [facility] Address [address] [place] [address] Phone Care Team Providers Care Safety Representative Name Role Phone Rani Fairbanks MD Primary Care Provider Encounter Details Date Type Department Care Team (Late st Contact Info) Description 03/09/2014 Documentation [facility] [place] [address] [place] [address] Family Medicine, Physician [address] [place], [place] [phone] Social History Tobacco Use Types Packs/Day Years [...] on filedocumented in this encounter Care Teams Safety Representative Relationship Specialty Start Date End Date Rani Fairbanks MD [address] [place] [address] PCP - General 07/04/17 05/21/23 documented as of this encounter
[2025-03-29 16:02] LABS: Bacterial Vaginosis PCR POSITIVE (Negative); Candida Group PCR NOT DETECTED (Not Detect); Candida glab krusei PCR NOT DETECTED (Not Detect); Trichomonas vaginalis PCR NOT DETECTED (Not Detect)
[2025-03-29 16:32] LABS: CT PCR NOT DETECTED (Not Detect.); NG PCR NOT DETECTED (Not Detect.)
== END 2025-03-29 10:17 | disposition home or self-care (01) ==
LOC: HO.LAB 10:16
PROVIDERS: PCP Physician Assistant; Visit Provider Advanced Practice Midwife
DX: Z20.2 Contact with and (suspected) exposure to infections with a predominantly sexual mode of transmission (principal)
CPT/HCPCS: 81515; 87491; 87591

== ENCOUNTER 2025-03-29 10:46 | Outpatient (REF) | payer OTHER, SELFPAY | END 2025-03-29 10:47 | disposition home or self-care (01) | LOC: HO.LNP 10:46 | PROVIDERS: Visit Provider Advanced Practice Midwife | DX: Z13.89 Encounter for screening for other disorder (principal) ==

== ENCOUNTER 2025-08-04 11:03 | Outpatient (REF) | payer OTHER, SELFPAY ==
[2025-08-04 23:18] LABS: Bacterial Vaginosis PCR NEGATIVE (Negative); Candida Group PCR NOT DETECTED (Not Detect); Candida glab krusei PCR NOT DETECTED (Not Detect); Trichomonas vaginalis PCR NOT DETECTED (Not Detect)
== END 2025-08-04 11:04 | disposition home or self-care (01) ==
LOC: HO.LAB 11:03
PROVIDERS: PCP Physician Assistant; Visit Provider Advanced Practice Midwife
DX: N94.89 Other specified conditions associated with female genital organs and menstrual cycle (principal); N89.8 Other specified noninflammatory disorders of vagina; R30.0 Dysuria
CPT/HCPCS: 81003; 81515

== ENCOUNTER 2025-08-04 11:03 | Outpatient (AMB) | payer OTHER, SELFPAY ==
--- NOTE | 2025-08-04 11:04 | MHC.OFFVIS ---
Vital Signs 08/04/25 11:09 Height 5 ft 4 in Weight 133 lb BMI 22.8 Intake Visit Reasons: ? vaginal itching Intake Note: vaginal itching on outside was on antibiotics for BV Principal Law Clerk Required: No Information Interpreted: non-clinical & clinical Pie Crust Mixer: Pie Crust Mixer Present (jennifer) Accompanied by: Self / Same As Patient Allergies acetaminophen (From Percocet) Allergy (Severe, Verified 03/29/25 10:20) Vomiting oxycodone (From Percocet) Allergy (Severe, Verified 03/29/25 10:20) Vomiting peach (PEACH) Allergy (Mild, Verified 03/29/25 10:20) HIVES almond Allergy (Unknown, Verified 08/04/25 11:34) Itching hazelnut Allergy (Unknown, Verified 08/04/25 11:34) Itching berries Allergy (Severe, Uncoded 01/22/24 11:19) hives Nectarines Allergy (Unknown, Uncoded 01/22/24 11:19) Throat closes Medication List - Last Reconciled 08/04/25 by Kelsey Mahoney LPN cholecalciferol (vitamin D3) 50 mcg PO DAILY lactobacillus combination no.4 (Probiotic) 3,000 mmu cells PO DAILY metronidazole 500 mg PO BID 7 days polyethylene glycol 3350 (Miralax) 17 grams PO DAILY Is last menstrual period known: Yes Last menstrual period: 07/16/25 Do you need a note to return to daycare/school/sports/work: No HPI Comments Details: Patient is here today with vulvar itching, history of antibiotic use 1 month ago. She reports a pill yellow discharge and some discomfort with urination. She denies any pelvic pain. No new intimate partners, same sex partner. She reports multiple GI symptoms and allergies to many foods. [facility] Medical History Anxiety Surgical History Hx of wisdom tooth extraction Family History Father Hypertension Maternal Grandfather Prostate cancer Social History Housing: House Alcohol intake: current Alcohol intake frequency: holidays/special occasions only Alcohol type: other Patient Tobacco Use Status: Never used Tobacco e-Cigarette/Vaping Use: Never Used Second Hand Smoke Exposure: No Substance Use Type: Marijuana service: No Current occupational status: employed Current occupational exposures/hazards: No Sexual orientation: Lesbian/Simental/Homosexual Gender identity: Female Cognitive needs: No Hearing needs: No Vision needs: No Female Reproductive History Menstrual Age of Menarche: 11 Date of last menstrual period: 07/16/25 control method: abstinence Review of Systems Const All systems reviewed & are unremarkable except as noted in HPI and below Physical Exam Vital Signs: BMI result Body Mass Index 22.8 Const General: cooperative, healthy appearing and no acute distress Orientation/consciousness: patient oriented x3 GI Inspection: Yes normal to inspection Palpation (GI): Soft to palpation and Other GI palpation findings present (Nontender) Rectal Exam - Female: visual inspection normal General: Yes bladder normal to palpation External Female Exam: normal appearance of the urethra and erythema (Mild bilateral labial) Speculum Exam - Vagina: normal appearance of the vagina, normal palpation and normal vaginal discharge Speculum Exam - Cervix: normal appearance of the cervix and normal palpation Bimanual exam- vagina & uterus: normal bimanual exam, normal palpation, uterine size normal, bladder normal to palpation, normal palpation, uterine shape normal and non-tender Bimanual Exam- Adnexa, other: normal adnexae Neuro General: patient oriented x3 Results AMB Urinalysis, Automated UA Leukoctes 0 Kirill/uL Last Edit by TANI Evans on 08/04/25 11:49 UA Nitrite Negative Last Edit by TANI Evans on 08/04/25 11:49 UA Urobilinogen 0 mg/dL Last Edit by TANI Evans on 08/04/25 11:49 UA Protein 0.5 mg/dL Last Edit by TANI Evans on 08/04/25 11:49 UA pH 6.0 Last Edit by TANI Evans on 08/04/25 11:49 UA Blood 0 Tonny/uL Last Edit by TANI Evans on 08/04/25 11:49 UA Specific [place] 1.015 Last Edit by TANI Evans on 08/04/25 11:49 UA Ketone Positive Last Edit by NahomyTANI Carrasco on 08/04/25 11:49 UA Bilirubin 0 mg/dL Last Edit by Nahomy TANI Chen on 08/04/25 11:49 UA Glucose 0 mg/dL Last Edit by Nahomy TANI Chen on 08/04/25 11:49 Results Reviewed Results Reviewed: Laboratory Last Values Urine pH (Auto) 6.0 08/04/25 11:22 Specific [place] (Auto) 1.015 08/04/25 11:22 Urine Protein (Auto) 0.5 mg/dL 08/04/25 11:22 Glucose (UA)(Auto) 0 mg/dL 08/04/25 11:22 Urine Ketones (Auto) Positive 08/04/25 11:22 Urine Blood (Auto) 0 Tonny/uL 08/04/25 11:22 Urine Nitrite (Auto) Negative 08/04/25 11:22 Urine Bilirubin (Auto) 0 mg/dL 08/04/25 11:22 Urine Urobilinogen (Auto) 0 mg/dL 08/04/25 11:22 Leukocyte Esterase (Auto) 0 Kirill/uL 08/04/25 11:22 Assessment & Plan Assessment & Plan (1) Dysuria: Code(s): R30.0 - Dysuria Category: Medical Plan: Urine dip-not indicative of a UTI. Encouraged adequate hydration. (2) Vulvar irritation: Code(s): N90.89 - Other specified noninflammatory disorders of vulva and perineum Plan BV panel obtained await results for final plan of care. Boric acid information provided. Reviewed healthy diet and gut biome, use in role of women's probiotics. The patient expressed understanding and agreement with the plan of care. All of her questions and concerns were addressed to the best of my ability. This note is constructed using voice recognition software. While every effort has been made to ensure accuracy, side stitching machine operator errors may have been included. Orders: Orders Bacterial Vaginosis Panel Today N89.8 - Other specified noninflammatory disorders of vagina, N94.89 - Other specified conditions associated with female genital organs and menstrual cycle AMB Urinalysis Automated Today R30.0 - Dysuria Coding Level of Care Code Est Pt Level 3 (01888) Diagnoses Dysuria R30.0 Vulvar irritation N90.89
[2025-08-04 11:09] VITALS: BMI 22.8
--- OUTSIDE RECORDS SUMMARY | 2025-08-04 15:22 | XMS_ITS | Encounter Summary ---
Author Organization [facility] Address [address] [place] [address] Phone Care Team Providers Care Loan Teller Name Role Phone Rani Fairbanks MD Primary Care Provider Encounter Details Date Type Department Care Team (Late st Contact Info) Description 04/01/2017 Documentation [facility] [place] Family Medicine [address] [place] [address] Family Medicine, Physician [address] [place], [place] [phone] Social History Tobacco Use Types Packs/Day Years [...] on filedocumented in this encounter Care Teams Loan Teller Relationship Specialty Start Date End Date Rani Fairbanks MD [address] [place] [address] PCP - General 07/04/17 05/21/23 documented as of this encounter
--- OUTSIDE RECORDS SUMMARY | 2025-08-04 15:22 | XMS_ITS | Encounter Summary ---
Author Organization [facility] Address [address] [place] [address] Phone Care Team Providers Care Tube Bender Name Role Phone Rani Fairbanks MD Primary Care Provider Encounter Details Date Type Department Care Team (Late st Contact Info) Description 03/21/2016 Documentation [facility] [place] Family Medicine [address] [place] [address] Family Medicine, Physician [address] [place], [place] [phone] Social History Tobacco Use Types Packs/Day Years [...] on filedocumented in this encounter Care Teams Tube Bender Relationship Specialty Start Date End Date Rani Fairbanks MD [address] [place] [address] PCP - General 07/04/17 05/21/23 documented as of this encounter
--- OUTSIDE RECORDS SUMMARY | 2025-08-04 15:22 | XMS_ITS | Clinical Summary ---
Author Organization [facility] Address [address] [place] [address] Phone Care Team Providers Care Lozenge Dough Mixer Name Role Phone Ovidio Mayfield Primary Care Provider + Allergies Active Allergy Reactions Criticality Noted Date Comments Fruit Extracts 07/24/2018 Peaches and nectarines Medications No known medications Social History Tobacco Use Types Packs/Day Years Used Date Smoking Tobacco: Never Smokeless Tobacco: Never Tobacco Cessation:Counseling Given: Not Answered Education Answer Date Recorded Are you interested in more education? Not on waldemar e 03/03/2024 Are you concerned about learning? Not on file 03/03/2024 No 03/03/2024 No 03/03/2024 Digital Access Answer Date Recorded No 03/03/2024 No 03/03/2024 Reliable internet access at home? Not on file 03/03/2024 Device with a working camera? Not on file Comments Unknown Sex and Gender Information Value Date Recorded Sex Assigned at Not on file Legal Sex Female 12:13 PM EDT Gender Identity Not on file Sexual Orientation Not on file Last Filed Vital Signs Vital Sign Reading Time Taken Comments Blood Pressure 109/76 03/03/2024 11:46 AM EDT Pulse 68 03/03/2024 11:46 AM EDT Temperature 36.8 C (98.2 F) 03/03/2024 11:46 AM EDT Respiratory Rate 16 03/03/2024 11:46 AM EDT Oxygen Saturation 100% 03/03/2024 11:46 AM EDT Inhaled Oxygen Concentration - - Weight 65.8 kg (145 lb) 03/03/2024 11:46 AM EDT per pt Height - - Body Mass Index - - Plan of Treatment Health Maintenance Due Date Last Done Comments DEPRESSION SCREENING 2012 SMOKING Hx and SMOKELESS TOB ACCO SCREENING 01/23/2013 HPV VACCINES (1 - 3-dose series) 01/23/2015 HEPATITIS C SCREENING 01/23/2018 HIV ONE-TIME SCREENING (18-6 5 YEARS) 01/23/2018 PAP SMEAR 01/23/2021 Adult Td,Tdap Booster 02/19/2022 02/20/2012 INFLUENZA VACCINE (#1) 2025 COVID-19 VACCINE (2023-2 5 season) 2025 HEPATITIS A VACCINES Aged Out No long er eligible based on patient's age to complete this topic HIB VACCINES Aged Out No longer eligi ble based on patient's age to complete this topic MENINGOCOCCAL VACCINES (ACWY) Aged Out No longer eligible based on patient's age to complete this topic MENINGOCOCCAL VACCINES (B) Aged Out N o longer eligible based on patient's age to complete this topic PNEUMOCOCCAL VACCINES (0-49 years) Aged Out No longer eligible based on patient's age to complete this topic Medical Devices Not on file Insurance [employer] Member Subscriber Plan / Payer (Ef fective 2020-Present) Name:Sarahi Dash Relation to Subscriber:Child Name:MANAV AVILES Date of :1964 (Home) Address: [address] [place] [address] Payer ID:[id number] (NAIC) Type:PPO Address: [place] [id number] [employer] Care Teams Lozenge Dough Mixer Relationship Specialty Start Date End Date Ovidio Mayfield PA [address] [place] [address] PCP - General Physician Bottling Line Attendant 03/03/24 Additional Source Comments The information contained in this document represents components of the legal health record. It is not the complete legal health record.[facility]
--- OUTSIDE RECORDS SUMMARY | 2025-08-04 15:22 | XMS_ITS | Encounter Summary ---
Author Organization [facility] Address [address] [place] [address] Phone Care Team Providers Care Electrical Engineering Professor Name Role Phone Rani Fairbanks MD Primary Care Provider Encounter Details Date Type Department Care Team (Late st Contact Info) Description 03/09/2014 Documentation [facility] [place] [address] [place] [address] Family Medicine, Physician [address] [place], [place] [phone] Social History Tobacco Use Types Packs/Day Years [...] on filedocumented in this encounter Care Teams Electrical Engineering Professor Relationship Specialty Start Date End Date Rani Fairbanks MD [address] [place] [address] PCP - General 07/04/17 05/21/23 documented as of this encounter
--- OUTSIDE RECORDS SUMMARY | 2025-08-04 15:22 | XMS_ITS | Encounter Summary ---
Author Organization [facility] Address [address] [place] [address] Phone Care Team Providers Care Carbon Sequestration Plant Operator Name Role Phone Rani Fairbanks MD Primary Care Provider Encounter Details Date Type Department Care Team (Late st Contact Info) Description 04/01/2017 Documentation [facility] [place] Family Medicine [address] [place] [address] Family Medicine, Physician [address] [place], [place] [phone] Social History Tobacco Use Types Packs/Day Years [...] on filedocumented in this encounter Care Teams Carbon Sequestration Plant Operator Relationship Specialty Start Date End Date Rani Fairbanks MD [address] [place] [address] PCP - General 07/04/17 05/21/23 documented as of this encounter
--- OUTSIDE RECORDS SUMMARY | 2025-08-04 15:22 | XMS_ITS | Encounter Summary ---
Author Organization [facility] Address [address] [place] [address] Phone Care Team Providers Care Triage Technician Name Role Phone Rani Fairbanks MD Primary Care Provider Encounter Details Date Type Department Care Team (Late st Contact Info) Description 07/10/2017 Conversion Encounter [place] [facility] [place] [address] [place] [address] Social History Tobacco Use Types Packs/Day Years [...] on filedocumented in this encounter Care Teams Triage Technician Relationship Specialty Start Date End Date Rani Fairbanks MD [address] [place] [address] PCP - General 07/04/17 05/21/23 documented as of this encounter
--- OUTSIDE RECORDS SUMMARY | 2025-08-04 15:22 | XMS_ITS | Encounter Summary ---
Author Organization [facility] Address [address] [place] [address] Phone Care Team Providers Care Pond Tender Name Role Phone Rani Fairbanks MD Primary Care Provider [phone] Encounter Details Date Type Department Care Team (Late st Contact Info) Description 04/01/2017 [place]ation [facility] [place] [address] [place] [address] Family Medicine, Physician [address] [place], [place] [phone] Social History Tobacco Use Types Packs/Day Years [...] on filedocumented in this encounter Care Teams Pond Tender Relationship Specialty Start Date End Date Rani Fairbanks MD [address] [place] [address] PCP - General 07/04/17 05/21/23 documented as of this encounter
--- OUTSIDE RECORDS SUMMARY | 2025-08-04 15:22 | XMS_ITS | Encounter Summary ---
Author Organization [facility] Address [address] [place] [address] Phone Care Team Providers Care Learning Officer Name Role Phone Rani Fairbanks MD Primary Care Provider Encounter Details Date Type Department Care Team (Late st Contact Info) Description 03/07/2015 Documentation [facility] [place] Family Medicine [address] [place] [address] Family Medicine, Physician [address] [place], [place] [phone] Social History Tobacco Use Types Packs/Day Years [...] on filedocumented in this encounter Care Teams Learning Officer Relationship Specialty Start Date End Date Rani Fairbanks MD [address] [place] [address] PCP - General 07/04/17 05/21/23 documented as of this encounter
--- OUTSIDE RECORDS SUMMARY | 2025-08-04 15:22 | XMS_ITS | Clinical Summary ---
Author Organization [facility] Address [address] [place] [address] Phone Care Team Providers Care Percolator Operator Name Role Phone Unavailable Primary Care Provider Unavailabl e Allergies Active Allergy Reactions Criticality Noted Date Comments Food 03/06/2018 Nectarines, peaches Prunus Persica Other reaction(s): Medications LARISSIA 0.1-20 MG-MCG per tablet Take 1 tablet by mouth once daily. 3 09/18/2018 Active Active Problems Problem Noted Date Diagnosed Date RLQ abdominal pain 02/22/2019 Overview (02/22/2019): Reports many month hx of RLQ pain. Seen at [facility] ER 02/17 for blood in her [...] her lung. 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 Pain keeps her up at night. Assessment & Plan (02/22/2019 4:54 PM EDT): Working at the [employer] 30 hours per week. Pt reports she [...] 83 02/22/2019 4:18 PM EDT Temperature 36.4 C (97.6 F) 02/22/2019 4:18 PM EDT Respiratory Rate - - Oxygen Saturation - [...] 08/26/2001, Additional history exists Influenza Vaccines (#1) 2025 12/02/2018, 10/29 COVID-19 Vaccine ( season) 2025 Hepatitis B Vaccines Completed 2000, 2000, 2000 [...] complete this topic Procedures * Due to [place] state law, this organization might not be sharing sensitive test results. Procedure Name Priority Date/Time Associated Diagnosis Comments CHLAMYDIA AND GONORRHEA, AMPLIFIED Routine 11/04/2018 6:23 PM EST Screening examination for bacterial and spirochetal disease from Last 3 Months or Most Recently Relevant to Health Maintenance Results * Due to [place] state law, this organization might not be sharing sensitive test results. * Chlamydia and Gonorrhoea, Amplified (11/04/2018 6:23 PM EST) Chlamydia Trachomatis, DNA Probe NEGATIVE (NEG) [facility] Comment: No Chlamydia Trachomatis RNA detected in this patient's sample (REFERENCE RANGE/NORMAL VALUE: NOT DETECTED) Note: This test uses tobacco hanger- mediated amplification method to detect rRNA from C. Trachomatis URINE GC AMP PROBE NEGATIVE (NEG) [facility] Comment: No Neisseria Gonorrhoeae RNA detected in this patient's sample (REFERENCE RANGE/NORMAL VALUE: NOT DETECTED) NOTE: This test uses tobacco hanger-mediated amplification method to detect rRNA from N.Gonorrhoeae. [...] without risk of sexual abuse. Consult the [facility] if needed. Contact phone number . Therapeutic failure or success cannot be determined with the Aptima Combo2 assay since nucleic acid may persist following appropriate antimicrobial therapy. The Centers for Disease Control and Prevention (CDC) recommends confirmatory retesting using culture or a different nucleic acid amplification test when positive results occur, if indicated. Testing performed or reported by [facility], a Service of [facility], [address] [place] [address] CLIA [id number] Christiano Tsang MD, Smash Piecer Urine 11/04/2018 6:23 PM EST 11/04/2018 9:46 PM EST us Promise Og MD LAB MICROBIOLOGY - GENERAL ORDER DANIEL Final Result [facility] from Last 3 Months or Most Recently Relevant to Health Maintenance
--- OUTSIDE RECORDS SUMMARY | 2025-08-04 15:22 | XMS_ITS | Encounter Summary ---
Author Organization [facility] Address [address] [place] [address] Phone Care Team Providers Care Cnc Machine Setter Name Role Phone Rani Fairbanks MD Primary Care Provider Encounter Details Date Type Department Care Team (Late st Contact Info) Description 02/21/2012 Documentation [facility] [place] Family Medicine [address] [place] [address] Family Medicine, Physician [address] [place], [place] [phone] Social History Tobacco Use Types Packs/Day Years [...] on filedocumented in this encounter Care Teams Cnc Machine Setter Relationship Specialty Start Date End Date Rani Fairbanks MD [address] [place] [address] PCP - General 07/04/17 05/21/23 documented as of this encounter
--- OUTSIDE RECORDS SUMMARY | 2025-08-04 15:22 | XMS_ITS | Encounter Summary ---
Author Organization [facility] Address [address] [place] [address] Phone Care Team Providers Care Continuing Education Dean Name Role Phone Rani Fairbanks MD Primary Care Provider Encounter Details Date Type Department Care Team (Late st Contact Info) Description 02/21/2012 Documentation [facility] [place] [address] [place] [address] Family Medicine, Physician [address] [place], [place] [phone] Social History Tobacco Use Types Packs/Day Years [...] on filedocumented in this encounter Care Teams Continuing Education Dean Relationship Specialty Start Date End Date Rani Fairbanks MD [address] [place] [address] PCP - General 07/04/17 05/21/23 documented as of this encounter
--- OUTSIDE RECORDS SUMMARY | 2025-08-04 15:22 | XMS_ITS | Encounter Summary ---
Author Organization [facility] Address [address] [place] [address] Phone Care Team Providers Care Clerk Secretary Name Role Phone Rani Fairbanks MD Primary Care Provider Encounter Details Date Type Department Care Team (Late st Contact Info) Description 03/08/2014 [place] [facility] [place] [address] [place] [address] Family Medicine, Physician [address] [place], [place] [phone] Social History Tobacco Use Types Packs/Day Years [...] on filedocumented in this encounter Care Teams Clerk Secretary Relationship Specialty Start Date End Date Rani Fairbanks MD [address] [place] [address] PCP - General 07/04/17 05/21/23 documented as of this encounter
--- OUTSIDE RECORDS SUMMARY | 2025-08-04 15:22 | XMS_ITS | Encounter Summary ---
Author Organization [facility] Address [address] [place] [address] Phone Care Team Providers Care Title Abstractor Name Role Phone Rani Fairbanks MD Primary Care Provider Encounter Details Date Type Department Care Team (Late st Contact Info) Description 03/29/2016 Documentation [facility] [place] [address] [place] [address] Family Medicine, Physician [address] [place], [place] [phone] Social History Tobacco Use Types Packs/Day Years [...] on filedocumented in this encounter Care Teams Title Abstractor Relationship Specialty Start Date End Date Rnai Fairbanks MD [address] [place] [address] PCP - General 07/04/17 05/21/23 documented as of this encounter
--- OUTSIDE RECORDS SUMMARY | 2025-08-04 15:22 | XMS_ITS | Encounter Summary ---
Author Organization [facility] Address [address] [place] [address] Phone Care Team Providers Care Supervisor Mold Shop Name Role Phone Rani Fairbanks MD Primary Care Provider Encounter Details Date Type Department Care Team (Late st Contact Info) Description 03/09/2014 Documentation [facility] [place] Family Medicine [address] [place] [address] Family Medicine, Physician [address] [place], [place] [phone] Social History Tobacco Use Types Packs/Day Years [...] on filedocumented in this encounter Care Teams Supervisor Mold Shop Relationship Specialty Start Date End Date Rani Fairbanks MD [address] [place] [address] PCP - General 07/04/17 05/21/23 documented as of this encounter
--- OUTSIDE RECORDS SUMMARY | 2025-08-04 15:22 | XMS_ITS | Encounter Summary ---
Author Organization [facility] Address [address] [place] [address] Phone Care Team Providers Care Trailer Mechanic Name Role Phone Rani Fairbanks MD Primary Care Provider Encounter Details Date Type Department Care Team (Late st Contact Info) Description 03/07/2015 [place] [facility] [place] [address] [place] [address] Family Medicine, Physician [address] [place], [place] [phone] Social History Tobacco Use Types Packs/Day Years [...] on filedocumented in this encounter Care Teams Trailer Mechanic Relationship Specialty Start Date End Date Rani Fairbanks MD [address] [place] [phone] PCP - General 07/04/17 05/21/23 documented as of this encounter
--- OUTSIDE RECORDS SUMMARY | 2025-08-04 15:22 | XMS_ITS | Encounter Summary ---
Author Organization [facility] Address [address] [place] [address] Phone Care Team Providers Care Tug Hand Name Role Phone Rani Fairbanks MD Primary Care Provider Encounter Details Date Type Department Care Team (Late st Contact Info) Description 03/21/2016 Documentation [facility] [place] [address] [place] [address] Family Medicine, Physician [address] [place], [place] [phone] Social History Tobacco Use Types Packs/Day Years [...] on filedocumented in this encounter Care Teams Tug Hand Relationship Specialty Start Date End Date Rani Fairbanks MD [address] [place] [phone] PCP - General 07/04/17 05/21/23 documented as of this encounter
--- OUTSIDE RECORDS SUMMARY | 2025-08-04 15:22 | XMS_ITS | Encounter Summary ---
Author Organization [facility] Address [address] [place] [address] Phone Care Team Providers Care Hr Intern Name Role Phone Rani Fairbanks MD Primary Care Provider [phone] Encounter Details Date Type Department Care Team (Late st Contact Info) Description 03/07/2015 Documentation [facility] [place] [address] [place] [address] Family Medicine, Physician [address] [place], [place] [phone] Social History Tobacco Use Types Packs/Day Years [...] on filedocumented in this encounter Care Teams Hr Intern Relationship Specialty Start Date End Date Rani Fairbanks MD [address] [place] [phone] PCP - General 07/04/17 05/21/23 documented as of this encounter
== END 2025-08-04 12:11 | disposition home or self-care (01) ==
LOC: HO.HWS 11:03
PROVIDERS: PCP Physician Assistant; Visit Provider Advanced Practice Midwife
DX: R30.0 Dysuria (principal); N90.89 Other specified noninflammatory disorders of vulva and perineum
CPT/HCPCS: 99213